=== PATIENT | female | born 1940 | race Asian ===

== ENCOUNTER 2018-01-25 08:36 | Inpatient (IN) | payer OTHER ==
--- NOTE | 2018-01-25 09:26 | PDOC ---
History of Present Illness - General History Source: Patient, Family Exam Limitations: No Limitations - History of Present Illness Initial Comments: 01/25/18 09:57 The patient is a 77 year old female, with a significant past medical history of Anemia, Afib (on eliquis), HTN, Chronic renal insufficiency who presents to the emergency department for worsening renal function. As per daughter, patients creatinine has been gradually increased to 12.3 (last checked 3 weeks ago at office). Patient endorses RLE swelling since changing BP medications. Patient was sent in by nephrology for urgent dialysis. Patient denies any pain or discomfort. Patient denies chest pain, palpitations, diaphoresis, headache or dizziness. Patient denies fever, chills, abdominal pain, nausea, vomit, diarrhea or constipation. Patient denies dysuria, frequency, urgency or hematuria. Patient denies sick contacts or recent travel. Allergies: NKA Past surgical history: LUE fistula Social history: denies etoh, smoking, recreational drug use Nephro: Kimberly Melgoza <Serena Rosas - Last Filed: 01/25/18 11:57> - General History Source: Patient, Family Exam Limitations: No Limitations <Tacho Dallas - Last Filed: 01/25/18 11:59> - General Chief Complaint: Revisit, Lab Variance Stated Complaint: ADMIT/ LAB VARIANCE Time Seen by Provider: 01/25/18 09:12 Past History <Serena Rosas - Last Filed: 01/25/18 11:57> - Past Medical History Anemia: Yes Cardiac Disorders: Yes (A-FIB) COPD: No Dialysis: Yes (JUST PREPARING TO START NOW,LT ARM FISTULA-07/2017) Disorders: Yes (RENAL FAILURE) HTN: Yes - Suicide/Smoking/Psychosocial Hx Smoking History: Never smoked <Tacho Dallas - Last Filed: 01/25/18 11:59> - Past Medical History Allergies/Adverse Reactions: Allergies Allergy/AdvReac Type Severity Reaction Status Date / Time No Known Allergies Allergy Verified 01/25/18 08:55 Home Medications: Ambulatory Orders Apixaban [Eliquis] 2.5 mg PO BID 01/25/18 Atorvastatin Ca [Lipitor] 10 mg PO HS 01/25/18 Calcium Acetate 667 mg PO BID 01/25/18 Calcium Carbonate [Tums] 200 mg PO DAILY 01/25/18 Carvedilol 12.5 mg PO DAILY 01/25/18 Cholecalciferol (Vitamin D3) [Vitamin D3 -] 50,000 unit PO WEEKLY 01/25/18 Epoetin Soy [Procrit] 20,000 unit SQ ASDIR 01/25/18 Ferrous Sulfate 325 mg PO BID 01/25/18 Folic Acid 1 mg PO DAILY 01/25/18 Pantoprazole Sodium [Protonix -] 20 mg PO DAILY 01/25/18 Sevelamer HCl [Renagel] 800 mg PO BID 01/25/18 Sodium Bicarbonate - 650 mg PO DAILY 01/25/18 Torsemide 100 mg PO DAILY 01/25/18 Vit B Comp No.3/Folic/C/Biotin [Kami-Jameel Rx Tablet] 1 each PO DAILY 01/25/18 Review of Systems - Review of Systems Able to Perform ROS?: Yes Comments:: 01/25/18 09:57 . GENERAL/CONSTITUTIONAL: No fever or chills. No weakness. HEAD, EYES, EARS, NOSE AND THROAT: No change in vision. No ear pain or discharge. No sore throat. CARDIOVASCULAR: No chest pain or shortness of breath. RESPIRATORY: No cough, wheezing, or hemoptysis. GASTROINTESTINAL: No nausea, vomiting, diarrhea or constipation. GENITOURINARY: No dysuria, frequency, or change in urination. MUSCULOSKELETAL: No joint or muscle swelling or pain. No neck or back pain. SKIN: No rash NEUROLOGIC: No headache, vertigo, loss of consciousness, or change in strength/ sensation. ENDOCRINE: No increased thirst. No abnormal weight change. HEMATOLOGIC/LYMPHATIC: No anemia, easy bleeding, or history of blood clots. ALLERGIC/IMMUNOLOGIC: No hives or skin allergy. <Serena Rossa - Last Filed: 01/25/18 11:57> *Physical Exam - Vital Signs Last Vital Signs Temp Pulse Resp BP Pulse Ox 97.7 F 63 19 128/72 96 01/25/18 08:56 01/25/18 08:56 01/25/18 08:56 01/25/18 08:56 01/25/18 08:56 - Physical Exam Comments: 01/25/18 09:57 GENERAL: Awake, alert, and fully oriented, in no acute distress HEAD: No signs of trauma EYES: PERRLA, EOMI, sclera anicteric, conjunctiva clear ENT: Auricles normal inspection, hearing grossly normal, nares patent, oropharynx clear without exudates. Moist mucosa NECK: Normal ROM, supple, no lymphadenopathy, JVD, or masses LUNGS: Breath sounds equal, clear to auscultation bilaterally. No wheezes, and no crackles HEART: Regular rate and rhythm, normal S1 and S2, no murmurs, rubs or gallops ABDOMEN: Soft, nontender, normoactive bowel sounds. No guarding, no rebound. No masses EXTREMITIES: Normal range of motion. No clubbing or cyanosis. No cords, erythema , or tenderness. +Trace pedal edema bilaterally. +LUE fistula with palpable thrill. NEUROLOGICAL: Cranial nerves II through XII grossly intact. Normal speech, normal gait SKIN: Warm, Dry, normal turgor, no rashes or lesions noted. <Serena Rosas - Last Filed: 01/25/18 11:57> - Vital Signs Last Vital Signs Temp Pulse Resp BP Pulse Ox 97.7 F 63 19 128/72 96 01/25/18 08:56 01/25/18 08:56 01/25/18 08:56 01/25/18 08:56 01/25/18 08:56 <Tacho Dallas - Last Filed: 01/25/18 11:59> Moderate Sedation - Procedure Monitoring Vital Signs: Vital Signs Temp Pulse Resp BP Pulse Ox 97.7 F 63 19 128/72 96 01/25/18 08:56 01/25/18 08:56 01/25/18 08:56 01/25/18 08:56 01/25/18 08:56 <Serena Rosas - Last Filed: 01/25/18 11:57> - Procedure Monitoring Vital Signs: Vital Signs Temp Pulse Resp BP Pulse Ox 97.7 F 63 19 128/72 96 01/25/18 08:56 01/25/18 08:56 01/25/18 08:56 01/25/18 08:56 01/25/18 08:56 <Tacho Dallas - Last Filed: 01/25/18 11:59> Heart Score/ECG Review #1 ECG reviewed & interpreted by me at: 10:15 01/25/18 10:25 NSR 60. QTC 482 msec, no std/samia, normal axis, TWI I, avL <Tacho Dallas - Last Filed: 01/25/18 11:59> ED Treatment Course - LABORATORY CBC & Chemistry Diagram: 01/25/18 11:10 01/25/18 11:10 <Serena Rosas - Last Filed: 01/25/18 11:57> - LABORATORY CBC & Chemistry Diagram: 01/25/18 11:10 01/25/18 11:10 - RADIOLOGY Radiology Studies Ordered: Category Date Time Status CHEST X-RAY PORTABLE* [RAD] Stat Radiology 01/25/18 09:14 Ordered <Tacho Dallas - Last Filed: 01/25/18 11:59> Medical Decision Making - Medical Decision Making 01/25/18 10:50 Dr. Fontanez paged overhead x2 01/25/18 11:25 Dr. Fontanez in ED, patient's case discussed. 01/25/18 11:[address] Rutherford for admission. Discussed patient's case. <Serena Rosas - Last Filed: 01/25/18 11:57> - Medical Decision Making 01/25/18 09:23 A portion of this note was documented by scribe services under my direction. I have reviewed the details of the note, within reason, and agree with the documentation with the following case summary and management plan written by me. Patient treated in the ED. Nursing notes are reviewed and incorporated into the medical decision-making. Vital signs reviewed. Peripheral IV access obtained by the nurse, laboratory studies are drawn and sent, reviewed and interpreted by myself. Vital Signs Temp Pulse Resp BP Pulse Ox 97.7 F 63 19 128/72 96 01/25/18 08:56 01/25/18 08:56 01/25/18 08:56 01/25/18 08:56 01/25/18 08:56 77-year-old female with history of atrial fibrillation on eliquis, hypertension , chronic renal insufficiency presents with admission to the hospital for renal failure. The patient has been having progressively worsening renal insufficiency with creatinine greater than 10. Patient denies any symptoms at the moment. Was sent in for dialysis. Patient does have a left upper extremity fistula. Patient's machine setter supervisor is Dr. Lynne Melgoza. We'll admit the patient to the hospital and contact patient's machine setter supervisor for renal failure. 01/25/18 11:59 CBC, BMP 01/25/18 11:10 01/25/18 11:10 CMP Sodium 135 mmol/L (136-145) L 01/25/18 11:10 Potassium 4.9 mmol/L (3.5-5.1) 01/25/18 11:10 Chloride 98 mmol/L (98-107) 01/25/18 11:10 Carbon Dioxide 25 mmol/L (21-32) 01/25/18 11:10 Anion Gap 12 (8-16) 01/25/18 11:10 BUN 96 mg/dL (7-18) H 01/25/18 11:10 Creatinine 13.7 mg/dL (0.55-1.02) H* 01/25/18 11:10 Creat Clearance w eGFR 2.62 (>60) 01/25/18 11:10 Random Glucose 83 mg/dL (74-106) 01/25/18 11:10 Calcium 7.8 mg/dL (8.5-10.1) L 01/25/18 11:10 Phosphorus 7.9 mg/dL (2.5-4.9) H 01/25/18 11:10 Magnesium 3.3 mg/dL (1.8-2.4) H 01/25/18 11:10 Total Bilirubin 0.3 mg/dL (0.2-1.0) 01/25/18 11:10 AST 13 U/L (15-37) L 01/25/18 11:10 ALT 11 U/L (12-78) L 01/25/18 11:10 Alkaline Phosphatase 69 U/L (45-117) 01/25/18 11:10 Total Protein 6.8 g/dl (6.4-8.2) 01/25/18 11:10 Albumin 3.1 g/dl (3.4-5.0) L 01/25/18 11:[address] Fabian Fontanez. Will likely set up dialysis today. Case discussed with DR. Rutherford who accepts patient to her service. Case discussed in detail with admitting physician including history, physical exam and ancillary studies. Admitting physician has assumed care for the patient, will follow all pending diagnostics and will complete the evaluation and treatment. <Tacho Dallas - Last Filed: 01/25/18 11:59> *DC/Admit/Observation/Transfer - Attestations Scribe Attestion: 01/25/18 09:57 Documentation prepared by Serena Rosas, acting as medical lab technician for Tacho Dallas MD <Serena Rosas - Last Filed: 01/25/18 11:57> - Discharge Dispostion Decision to Admit order: Yes <Tacho Dallas - Last Filed: 01/25/18 11:59> Diagnosis at time of Disposition: Renal failure Qualifiers: Renal failure chronicity: unspecified chronicity Qualified Code(s): N19 - Unspecified kidney failure - Discharge Dispostion Condition at time of disposition: Stable
[2018-01-25 11:27] LABS: BASO % 1.1 % (0-2.0); EOS % 6.7 % (0-4.5); HEMATOCRIT 28.1 % (32.4-45.2); HEMOGLOBIN 9.1 GM/dL (10.7-15.3); LYMPH % 23.7 % (8-40); MCH 28.6 pg (25.7-33.7); MCHC 32.4 g/dl (32.0-36.0); MEAN CELL VOLUME 88.2 fl (80-96); MEAN PLT VOLUME 7.4 fl (7.5-11.1); MONO % 7.4 % (3.8-10.2); NEUT % 61.1 % (42.8-82.8); PLATELET COUNT 218 K/MM3 (134-434); RBC 3.18 M/mm3 (3.60-5.2); RDW 15.3 % (11.6-15.6); WHITE BLOOD COUNT 6.3 K/mm3 (4.0-10.0)
[2018-01-25 11:52] LABS: ALBUMIN 3.1 g/dl (3.4-5.0); ANION GAP 12 (8-16); BILIRUBIN,TOTAL 0.3 mg/dL (0.2-1.0); BLOOD UREA NITROGEN 96 mg/dL (7-18); CALCIUM 7.8 mg/dL (8.5-10.1); CHLORIDE 98 mmol/L (98-107); CO2 25 mmol/L (21-32); GLUCOSE,RANDOM 83 mg/dL (74-106); PHOSPHOROUS 7.9 mg/dL (2.5-4.9); SGPT/ALT 11 U/L (12-78); SODIUM 135 mmol/L (136-145); TOT PROT 6.8 g/dl (6.4-8.2)
[2018-01-25 11:55] LABS: ALK PHOS 69 U/L (45-117); MAGNESIUM 3.3 mg/dL (1.8-2.4); POTASSIUM 4.9 mmol/L (3.5-5.1); SGOT/AST 13 U/L (15-37)
[2018-01-25 11:57] LABS: CREATININE 13.7 mg/dL (0.55-1.02)
[2018-01-25 11:59] LABS: URINE APPEARANCE CLEAR; URINE BILIRUBIN NEGATIVE (<2.0 mg/dL); URINE BLOOD NEGATIVE (NEGATIVE); URINE COLOR STRAW; URINE GLUCOSE (UA) 1+ (NEGATIVE); URINE KETONE NEGATIVE (NEGATIVE); URINE LEUK ESTERASE NEGATIVE (NEGATIVE); URINE NITRITE NEGATIVE (NEGATIVE); URINE UROBILINOGEN NEGATIVE mg/dL (0.2-1.0)
[2018-01-25 12:06] LABS: URINE PROTEIN 2+ (NEGATIVE)
[2018-01-25 12:08] LABS: INR 1.28 (0.82-1.09); PROTHROMBIN TIME (PATIENT) 14.5 SEC (9.7-13.0)
[2018-01-25 12:08] LABS: EPI CELLS RARE /HPF (FEW); URINE MUCUS RARE
[2018-01-25 12:11] LABS: ACTIVATED PTT 36.4 SECONDS (26.9-34.4)
--- NOTE | 2018-01-25 12:40 | CONSULT ---
Consult Consult Specialty:: Nephrology ( Alexis/ Huseyin) Reason for Consultation:: Advanced Chronic Kideny failure with symptoms of uremia - History of Present Illness Chief Complaint: Weakness, lethargy History of Present Illness: The patient is a 77 year old [place] female, with a significant past medical history of Anemia, Afib (on Eliquis), HTN, Chronic kidney failure who presented to the emergency department for worsening renal function and weakness. The patient's Serum Creatinine has been gradually increasing over a period, but the patient and family wanted to put off dialysis until the very last possible day. Patient gets LE swelling since changing BP medications. She was being followed up by me very closely in the office. A left arm AVF done in [facility] in 2016 was revised in [facility] a few months ago by Dr. Angel. Patient denies chest pain, palpitations, diaphoresis, headache or dizziness. Patient denies fever, chills, abdominal pain, nausea, vomit, diarrhea or constipation. Patient denies dysuria, frequency, urgency or hematuria. Patient denies sick contacts or recent travel. 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 No: Bleeding Disorder, Cancer Musculoskeletal: Yes: Osteoarthritis - Past Surgical History Past Surgical History: Yes: AV Fistula/Graft (Left arm AVF) - Alcohol/Substance Use Hx Alcohol Use: No History of Substance Use: reports: None - Smoking History Smoking history: Never smoked - Social History ADL: Family Assistance Place of : Other Home Medications - Allergies Allergies/Adverse Reactions: Allergies Allergy/AdvReac Type Severity Reaction Status Date / Time No Known Allergies Allergy Verified 01/25/18 08:55 - Home Medications Home Medications: Ambulatory Orders Apixaban [Eliquis] 2.5 mg PO BID 01/25/18 Atorvastatin Ca [Lipitor] 10 mg PO HS 01/25/18 Calcium Acetate 667 mg PO BID 01/25/18 Calcium Carbonate [Tums] 200 mg PO DAILY 01/25/18 Carvedilol 12.5 mg PO DAILY 01/25/18 Cholecalciferol (Vitamin D3) [Vitamin D3 -] 50,000 unit PO WEEKLY 01/25/18 Epoetin Soy [Procrit] 20,000 unit SQ ASDIR 01/25/18 Ferrous Sulfate 325 mg PO BID 01/25/18 Folic Acid 1 mg PO DAILY 01/25/18 Pantoprazole Sodium [Protonix -] 20 mg PO DAILY 01/25/18 Sevelamer HCl [Renagel] 800 mg PO BID 01/25/18 Sodium Bicarbonate - 650 mg PO DAILY 01/25/18 Torsemide 100 mg PO DAILY 01/25/18 Vit B Comp No.3/Folic/C/Biotin [Kami-Jameel Rx Tablet] 1 each PO DAILY 01/25/18 Review of Systems - Review of Systems Constitutional: reports: Lethargy, Weakness Cardiovascular: reports: Edema (mostly on Amlodipine). denies: Chest Pain, Shortness of Breath Respiratory: denies: Orthopnea, SOB Gastrointestinal: denies: Abdominal Pain, Constipation, Diarrhea Musculoskeletal: reports: Muscle Weakness Neurological: reports: Weakness Psychiatric: reports: Altered Sleep Pattern Physical Exam Vital Signs: Vital Signs Temperature 97.7 F 01/25/18 08:56 Pulse Rate 63 01/25/18 08:56 Respiratory Rate 19 01/25/18 08:56 Blood Pressure 128/72 01/25/18 08:56 O2 Sat by Pulse Oximetry (%) 96 01/25/18 08:56 Constitutional: Yes: Anxious, Thin HENT: Yes: Atraumatic Neck: Yes: Trachea Midline Cardiovascular: Yes: Pulse Irregular, S1, S2 Respiratory: Yes: CTA Bilaterally Gastrointestinal: Yes: Normal Bowel Sounds, Soft Renal/: No: CVA Tenderness - Left, CVA Tenderness - Right Musculoskeletal: Yes: Muscle Weakness Edema: Yes Edema: LLE: Trace, RLE: Trace Integumentary: No: Jaundice, Rash Neurological: Yes: Alert, Oriented, Weakness Psychiatric: Yes: Alert, Oriented Labs: CBC, BMP 01/25/18 11:10 01/25/18 11:10 Problem List - Problems (1) End-stage kidney disease Code(s): N18.6 - END STAGE RENAL DISEASE (2) Anemia in chronic kidney disease (CKD) Code(s): N18.9 - CHRONIC KIDNEY DISEASE, UNSPECIFIED; D63.1 - ANEMIA IN CHRONIC KIDNEY DISEASE (3) Hypertension Code(s): I10 - ESSENTIAL (PRIMARY) HYPERTENSION (4) Chronic atrial fibrillation Code(s): I48.2 - CHRONIC ATRIAL FIBRILLATION Assessment/Plan The patient is a 77 year old [place] female, with a significant past medical history of Anemia, Afib (on Eliquis), HTN, Chronic kidney failure who presented to the emergency department for worsening renal function and weakness. Advanced Chronic kidney Disease, ESRD, with symptoms of Uremia. Will initiate dialysis today. the first dialysis will be for 2 hours, 16 G needle and with ABF of 200 ml/min. Anemia, of Chronic Renal disease. Will give Epogen. Hypertension...well controlled AVF left arm with good bruit. No BP/ IV on the left arm. Atrial fibrillation. Moderate Ventricular response. Orders for Hemodialysis written and reviewed with the RN. Thank you. Will follow with you. Kimberly Espinoza MD
--- NOTE | 2018-01-25 18:06 | EKG ---
Test Reason : Blood Pressure : / mmHG Vent. Rate : 060 BPM Atrial Rate : 060 BPM P-R Int : 178 ms QRS Dur : 106 ms QT Int : 482 ms P-R-T Axes : 060 -09 089 degrees QTc Int : 482 ms NORMAL SINUS RHYTHM NONSPECIFIC T WAVE ABNORMALITY PROLONGED QT ABNORMAL ECG NO PREVIOUS ECGS AVAILABLE Confirmed by AROLDO QUINN MD ([id number]) on 01/25/2018 6:05:38 PM Referred By: Confirmed By:AROLDO QUINN MD
[2018-01-25] MEDS ORDERED: ZOLPIDEM TARTRATE 5 MG TABLET PO PRN (19:00)
[2018-01-25] MEDS ORDERED: EPOETIN ALFA 10,000 UNIT/1 ML VIAL IVPUSH ONE (19:30)
--- NOTE | 2018-01-25 19:53 | HP ---
Admitting History and Physical - Primary Care Physician PCP: Rizwana Rutherford - Admission History of Present Illness: 77 year old female, with a significant past medical history of Anemia, Afib (on eliquis), HTN, Chronic renal insufficiency who presents to the emergency department for worsening renal function. As per daughter, patients creatinine has been gradually increased to 12.3 (last checked 3 weeks ago at office). Patient endorses RLE swelling since changing BP medications. Patient was sent in by nephrology for urgent dialysis. Patient denies any pain or discomfort. 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 No: Bleeding Disorder, Cancer Musculoskeletal: Yes: Osteoarthritis - Past Surgical History Past Surgical History: Yes: AV Fistula/Graft (Left arm AVF) - Smoking History Smoking history: Never smoked - Alcohol/Substance Use Hx Alcohol Use: No History of Substance Use: reports: None - Social History ADL: Family Assistance Home Medications - Allergies Allergies/Adverse Reactions: Allergies Allergy/AdvReac Type Severity Reaction Status Date / Time No Known Allergies Allergy Verified 01/25/18 08:55 - Home Medications Home Medications: Ambulatory Orders Amlodipine Besylate 5 mg PO DAILY 01/25/18 Apixaban [Eliquis] 2.5 mg PO BID 01/25/18 Atorvastatin Ca [Lipitor] 10 mg PO HS 01/25/18 Calcium Acetate 667 mg PO TID 01/25/18 Calcium Carbonate [Tums] 200 mg PO DAILY 01/25/18 Carvedilol 12.5 mg PO BID 01/25/18 Carvedilol [Coreg] 6.25 mg PO BID 01/25/18 Cholecalciferol (Vitamin D3) [Vitamin D3 -] 50,000 unit PO WEEKLY 01/25/18 Epoetin Soy [Procrit] 20,000 unit SQ ASDIR 01/25/18 Ferrous Sulfate 325 mg PO BID 01/25/18 Folic Acid 1 mg PO DAILY 01/25/18 Pantoprazole Sodium [Protonix -] 20 mg PO DAILY 01/25/18 Sevelamer HCl [Renagel] 800 mg PO BID 01/25/18 Sodium Bicarbonate - 650 mg PO TID 01/25/18 Torsemide 100 mg PO DAILY 01/25/18 Vit B Comp No.3/Folic/C/Biotin [Kami-Jameel Rx Tablet] 1 each PO DAILY 01/25/18 Physical Examination Vital Signs: Vital Signs Temperature 97.6 F 01/25/18 18:35 Pulse Rate 60 01/25/18 19:10 Respiratory Rate 18 01/25/18 19:10 Blood Pressure 151/88 01/25/18 19:10 O2 Sat by Pulse Oximetry (%) 97 01/25/18 14:18 Constitutional: Yes: No Distress HENT: Yes: Atraumatic Neck: Yes: Supple Cardiovascular: Yes: Regular Rate and Rhythm Respiratory: Yes: CTA Bilaterally Gastrointestinal: Yes: Normal Bowel Sounds Extremities: Yes: WNL Labs: CBC, BMP 01/25/18 11:10 01/25/18 11:10 Problem List - Problems (1) Anemia in chronic kidney disease (CKD) Assessment/Plan: fu labs on procrit and fe Code(s): N18.9 - CHRONIC KIDNEY DISEASE, UNSPECIFIED; D63.1 - ANEMIA IN CHRONIC KIDNEY DISEASE (2) Chronic atrial fibrillation Assessment/Plan: on blood thinner and other meds Code(s): I48.2 - CHRONIC ATRIAL FIBRILLATION (3) End-stage kidney disease Assessment/Plan: on HD now..first time Code(s): N18.6 - END STAGE RENAL DISEASE (4) Hypertension Assessment/Plan: on meds stable Code(s): I10 - ESSENTIAL (PRIMARY) HYPERTENSION Assessment/Plan Laboratory Results - last 24 hr 01/25/18 01/25/18 01/25/18 11:10 11:10 11:10 WBC 6.3 RBC 3.18 L Hgb 9.1 L Hct 28.1 L MCV 88.2 MCH 28.6 MCHC 32.4 RDW 15.3 Plt Count 218 MPV 7.4 L Neutrophils % 61.1 Lymphocytes % 23.7 Monocytes % 7.4 Eosinophils % 6.7 H Basophils % 1.1 PT with INR 14.50 H INR 1.28 H PTT (Actin FS) 36.4 H Sodium 135 L Potassium 4.9 Chloride 98 Carbon Dioxide 25 Anion Gap 12 BUN 96 H Creatinine 13.7 H* Creat Clearance w eGFR 2.62 Random Glucose 83 Calcium 7.8 L Phosphorus 7.9 H Magnesium 3.3 H Total Bilirubin 0.3 AST 13 L ALT 11 L Alkaline Phosphatase 69 Total Protein 6.8 Albumin 3.1 L Urine Color Urine Appearance Urine pH Ur Specific [place] Urine Protein Urine Glucose (UA) Urine Ketones Urine Blood Urine Nitrite Urine Bilirubin Urine Urobilinogen Ur Leukocyte Esterase Urine WBC (Auto) Urine RBC (Auto) Ur Epithelial Cells Urine Mucus 01/25/18 11:45 WBC RBC Hgb Hct MCV MCH MCHC RDW Plt Count MPV Neutrophils % Lymphocytes % Monocytes % Eosinophils % Basophils % PT with INR INR PTT (Actin FS) Sodium Potassium Chloride Carbon Dioxide Anion Gap BUN Creatinine Creat Clearance w eGFR Random Glucose Calcium Phosphorus Magnesium Total Bilirubin AST ALT Alkaline Phosphatase Total Protein Albumin Urine Color Straw Urine Appearance Clear Urine pH 8.0 Ur Specific [place] 1.009 Urine Protein 2+ H Urine Glucose (UA) 1+ H Urine Ketones Negative Urine Blood Negative Urine Nitrite Negative Urine Bilirubin Negative Urine Urobilinogen Negative Ur Leukocyte Esterase Negative Urine WBC (Auto) 6 Urine RBC (Auto) 1 Ur Epithelial Cells Rare Urine Mucus Rare Active Medications Generic Name Dose Route Start Last Admin Trade Name Freq PRN Reason Stop Dose Admin Zolpidem Tartrate 5 mg 01/25/18 19:00 Ambien - PO DAILY@1900 PRN INSOMNIA for dialysis Active Medications Generic Name Dose Route Start Last Admin Trade Name Freq PRN Reason Stop Dose Admin Amlodipine Besylate 5 mg 01/26/18 10:00 01/26/18 09:03 Norvasc - PO 5 mg DAILY ROLANDO Administration Apixaban 2.5 mg 01/25/18 22:00 01/26/18 09:03 Eliquis - PO 2.5 mg BID ROLANDO Administration Atorvastatin Calcium 10 mg 01/25/18 22:00 01/25/18 22:52 Lipitor - PO 10 mg HS ROLANDO Administration Calcium Acetate 667 mg 01/26/18 08:00 01/26/18 08:37 Phoslo - PO 667 mg BIDWM ROLANDO Administration Carvedilol 12.5 mg/ Carvedilol 18.75 mg 01/25/18 23:45 01/26/18 09:02 6.25 mg PO 18.75 mg BID ROLANDO Administration Folic Acid 1 mg 01/26/18 10:00 01/26/18 09:03 Folic Acid - PO 1 mg DAILY ROLANDO Administration Sodium Chloride 250 mls @ 3,000 mls/hr 01/26/18 15:49 Normal Saline - IV 01/27/18 15:48 PRN PRN Hypotension during Dialysis Pantoprazole Sodium 20 mg 01/26/18 10:00 01/26/18 09:02 Protonix - PO 20 mg DAILY ROLANDO Administration Sevelamer Carbonate 800 mg 01/26/18 08:00 01/26/18 08:37 Renvela - PO 800 mg BIDWM ROLANDO Administration Sodium Bicarbonate 650 mg 01/26/18 10:00 01/26/18 09:02 Sodium Bicarbonate - PO 650 mg DAILY ROLANDO Administration Torsemide 100 mg 01/26/18 10:00 01/26/18 11:22 Demadex - PO 100 mg DAILY ROLANDO Administration Zolpidem Tartrate 5 mg 01/25/18 19:00 Ambien - PO DAILY@1900 PRN INSOMNIA
[2018-01-25] MEDS ORDERED: EPOETIN ALFA 20,000 UNIT/1 ML VIAL SQ SCH (20:00)
[2018-01-25] MEDS: ATORVASTATIN CA 10 MG TABLET (FP) PO SCH (22:52)
[2018-01-25] MEDS: APIXABAN 2.5 MG TABLET PO SCH (22:52)
[2018-01-25] MEDS ORDERED: CARVEDILOL 12.5 MG TABLET (FP) ONE (23:42)
[2018-01-25] MEDS ORDERED: CARVEDILOL 6.25 MG TABLET (FP) ONE (23:42)
[2018-01-25] MEDS: CARVEDILOL 12.5 MG, CARVEDILOL 6.25 MG PO SCH (23:44)
[2018-01-26 01:50] VITALS: BMI 21.4
[2018-01-26] MEDS ORDERED: CARVEDILOL 6.25 MG TABLET (FP) ONE (08:29)
[2018-01-26] MEDS ORDERED: CARVEDILOL 12.5 MG TABLET (FP) ONE ×2 (08:29→21:14)
[2018-01-26] MEDS ORDERED: PT OWN MED DRAWER 7, Y5N ONE ×3 (08:29→21:15)
[2018-01-26] MEDS: CALCIUM ACETATE 667 MG CAPSULE (FP) PO SCH ×2 (08:37→17:30)
[2018-01-26] MEDS: SEVELAMER CARBONATE 800 MG TAB (FP) PO SCH ×2 (08:37→17:30)
[2018-01-26] MEDS: PANTOPRAZOLE 20 MG TABLET (FP) PO SCH (09:02)
[2018-01-26] MEDS: CARVEDILOL 12.5 MG, CARVEDILOL 6.25 MG PO SCH ×2 (09:02→22:12)
[2018-01-26] MEDS: SODIUM BICARBONATE 650 MG TABLET PO SCH (09:02)
[2018-01-26] MEDS: amLODIPine BESYLATE 5 MG TABLET (FP) PO SCH (09:03)
[2018-01-26] MEDS: APIXABAN 2.5 MG TABLET PO SCH ×2 (09:03→22:12)
[2018-01-26] MEDS: FOLIC ACID 1 MG TABLET (FP) PO SCH (09:03)
[2018-01-26] MEDS ORDERED: SODIUM CHLORIDE 250 ML IV PRN ×2 (09:35→15:49)
[2018-01-26] MEDS ORDERED: CARVEDILOL 6.25 MG TABLET (FP) PO SCH (10:00)
[2018-01-26] MEDS ORDERED: CARVEDILOL 12.5 MG TABLET (FP) PO SCH (10:00)
[2018-01-26] MEDS: TORSEMIDE 100 MG TABLET PO SCH (11:22)
[2018-01-26 11:24] LABS: HEMATOCRIT 29.5 % (32.4-45.2); HEMOGLOBIN 9.6 GM/dL (10.7-15.3); MCH 28.9 pg (25.7-33.7); MCHC 32.6 g/dl (32.0-36.0); MEAN CELL VOLUME 88.8 fl (80-96); MEAN PLT VOLUME 7.5 fl (7.5-11.1); PLATELET COUNT 223 K/MM3 (134-434); RBC 3.32 M/mm3 (3.60-5.2); RDW 15.5 % (11.6-15.6); WHITE BLOOD COUNT 5.6 K/mm3 (4.0-10.0)
[2018-01-26 11:39] LABS: ANION GAP 13 (8-16); BLOOD UREA NITROGEN 91 mg/dL (7-18); CALCIUM 7.8 mg/dL (8.5-10.1); CHLORIDE 100 mmol/L (98-107); CO2 26 mmol/L (21-32); POTASSIUM 4.6 mmol/L (3.5-5.1); SODIUM 139 mmol/L (136-145)
[2018-01-26 11:53] LABS: GLUCOSE,RANDOM 105 mg/dL (74-106); PHOSPHOROUS 7.2 mg/dL (2.5-4.9)
[2018-01-26 11:59] LABS: CREATININE 12.5 mg/dL (0.55-1.02)
--- NOTE | 2018-01-26 15:59 | PN ---
Progress Note, Physician History of Present Illness: doing well - Current Medication List Current Medications: Active Medications Amlodipine Besylate (Norvasc -) 5 mg PO DAILY [facility] Last Admin: 01/26/18 09:03 Dose: 5 mg Apixaban (Eliquis -) 2.5 mg PO BID [facility] Last Admin: 01/26/18 09:03 Dose: 2.5 mg Atorvastatin Calcium (Lipitor -) 10 mg PO HS [facility] Last Admin: 01/25/18 22:52 Dose: 10 mg Calcium Acetate (Phoslo -) 667 mg PO BIDWM [facility] Last Admin: 01/26/18 08:37 Dose: 667 mg Carvedilol 12.5 mg/ Carvedilol (6.25 mg) 18.75 mg PO BID [facility] Last Admin: 01/26/18 09:02 Dose: 18.75 mg Folic Acid (Folic Acid -) 1 mg PO DAILY [facility] Last Admin: 01/26/18 09:03 Dose: 1 mg Sodium Chloride (Normal Saline -) 250 mls @ 3,000 mls/hr IV PRN PRN PRN Reason: Hypotension during Dialysis Stop: 01/27/18 15:48 Pantoprazole Sodium (Protonix -) 20 mg PO DAILY [facility] Last Admin: 01/26/18 09:02 Dose: 20 mg Sevelamer Carbonate (Renvela -) 800 mg PO BIDWM [facility] Last Admin: 01/26/18 08:37 Dose: 800 mg Sodium Bicarbonate (Sodium Bicarbonate -) 650 mg PO DAILY [facility] Last Admin: 01/26/18 09:02 Dose: 650 mg Torsemide (Demadex -) 100 mg PO DAILY [facility] Last Admin: 01/26/18 11:22 Dose: 100 mg Zolpidem Tartrate (Ambien -) 5 mg PO DAILY@1900 PRN PRN Reason: INSOMNIA - Objective Vital Signs: Vital Signs Temperature 98.2 F 01/26/18 14:21 Pulse Rate 70 01/26/18 14:21 Respiratory Rate 18 01/26/18 14:21 Blood Pressure 137/83 01/26/18 14:21 O2 Sat by Pulse Oximetry (%) 97 01/26/18 11:00 Constitutional: Yes: No Distress HENT: Yes: Atraumatic Neck: Yes: Supple Cardiovascular: Yes: Regular Rate and Rhythm Respiratory: Yes: CTA Bilaterally Gastrointestinal: Yes: Normal Bowel Sounds Extremities: Yes: WNL Neurological: Yes: Alert, Oriented Labs: CBC, BMP 01/26/18 10:50 01/26/18 10:50 INR, PTT INR 1.28 (0.82-1.09) H 01/25/18 11:10 Problem List - Problems (1) Anemia in chronic kidney disease (CKD) Assessment/Plan: fu labs on procrit and fe Code(s): N18.9 - CHRONIC KIDNEY DISEASE, UNSPECIFIED; D63.1 - ANEMIA IN CHRONIC KIDNEY DISEASE (2) Chronic atrial fibrillation Assessment/Plan: on blood thinner and other meds Code(s): I48.2 - CHRONIC ATRIAL FIBRILLATION (3) End-stage kidney disease Assessment/Plan: on HD now..first time for recanalization of fistula...on Code(s): N18.6 - END STAGE RENAL DISEASE (4) Hypertension Assessment/Plan: on meds stable Code(s): I10 - ESSENTIAL (PRIMARY) HYPERTENSION
--- NOTE | 2018-01-26 17:50 | PN ---
Progress Note (short form) - Note Progress Note: Renal follow up for ESRD on HD Pt seen and examined in the HD unit currently getting dialysis Dameron pressure very elevated and signs of recirculation no sob, chest pain Vital Signs Temperature 98.2 F 01/26/18 14:21 Pulse Rate 70 01/26/18 14:21 Respiratory Rate 18 01/26/18 14:21 Blood Pressure 137/83 01/26/18 14:21 O2 Sat by Pulse Oximetry (%) 97 01/26/18 11:00 Intake & Output 01/23/18 01/24/18 01/25/18 01/26/18 23:59 23:59 23:59 23:59 Intake Total 100 Balance 100 Weight 51.528 kg 51.528 kg NAD awake and alert RRR no M/R CTA soft NT/ND no LE edema CBC, BMP 01/26/18 10:50 01/26/18 10:50 Current Medications Amlodipine Besylate (Norvasc -) 5 mg PO DAILY [facility] Last Admin: 01/26/18 09:03 Dose: 5 mg Apixaban (Eliquis -) 2.5 mg PO BID [facility] Last Admin: 01/26/18 09:03 Dose: 2.5 mg Atorvastatin Calcium (Lipitor -) 10 mg PO HS [facility] Last Admin: 01/25/18 22:52 Dose: 10 mg Calcium Acetate (Phoslo -) 667 mg PO BIDWM [facility] Last Admin: 01/26/18 17:30 Dose: Not Given Carvedilol 12.5 mg/ Carvedilol (6.25 mg) 18.75 mg PO BID [facility] Last Admin: 01/26/18 09:02 Dose: 18.75 mg Folic Acid (Folic Acid -) 1 mg PO DAILY [facility] Last Admin: 01/26/18 09:03 Dose: 1 mg Sodium Chloride (Normal Saline -) 250 mls @ 3,000 mls/hr IV PRN PRN PRN Reason: Hypotension during Dialysis Stop: 01/27/18 15:48 Pantoprazole Sodium (Protonix -) 20 mg PO DAILY [facility] Last Admin: 01/26/18 09:02 Dose: 20 mg Sevelamer Carbonate (Renvela -) 800 mg PO BIDWM [facility] Last Admin: 01/26/18 17:30 Dose: Not Given Sodium Bicarbonate (Sodium Bicarbonate -) 650 mg PO DAILY [facility] Last Admin: 01/26/18 09:02 Dose: 650 mg Torsemide (Demadex -) 100 mg PO DAILY [facility] Last Admin: 01/26/18 11:22 Dose: 100 mg Zolpidem Tartrate (Ambien -) 5 mg PO DAILY@1900 PRN PRN Reason: INSOMNIA 77 year old woman with CKD stage 5, Hypertension, Anemia persented with fatigue and uremic symptoms and started on HD #ESRD on HD #Hypertension #Recirculation #Anemia in CKD #Renal Osteodystrophy Pt with signs of recirculation on HD will need vascular evalulation of her AVF s/p Epogen with HD yesterday continue Phos binder TID with meals Consulted Dr. evans outpatient HD unit placement at [facility] Fabian Fontanez DO
--- NOTE | 2018-01-26 17:58 | PN ---
Progress Note (short form) - Note Progress Note: Vascular Surgery Pt seen and examined in HD Pt on dialysis with volume flow of 240. There is a issue of re-circulation. Will order US to look at aVf. Will probably need venogram on morning to make sure avf is patent with no stenosis. Alfred evans DO
[2018-01-26] MEDS: ATORVASTATIN CA 10 MG TABLET (FP) PO SCH (22:12)
[2018-01-27 08:46] LABS: ANION GAP 12 (8-16); BLOOD UREA NITROGEN 78 mg/dL (7-18); CALCIUM 7.5 mg/dL (8.5-10.1); CHLORIDE 102 mmol/L (98-107); CO2 25 mmol/L (21-32); GLUCOSE,RANDOM 73 mg/dL (74-106); PHOSPHOROUS 6.6 mg/dL (2.5-4.9); POTASSIUM 4.2 mmol/L (3.5-5.1); SODIUM 139 mmol/L (136-145)
[2018-01-27] MEDS ORDERED: CARVEDILOL 12.5 MG TABLET (FP) ONE ×3 (08:52→20:58)
[2018-01-27 08:58] LABS: CREATININE 11.5 mg/dL (0.55-1.02)
[2018-01-27] MEDS: SODIUM BICARBONATE 650 MG TABLET PO SCH (09:01)
[2018-01-27] MEDS: PANTOPRAZOLE 20 MG TABLET (FP) PO SCH (09:01)
[2018-01-27] MEDS: amLODIPine BESYLATE 5 MG TABLET (FP) PO SCH (09:02)
[2018-01-27] MEDS: CARVEDILOL 12.5 MG, CARVEDILOL 6.25 MG PO SCH ×2 (09:04→21:32)
[2018-01-27] MEDS: CALCIUM ACETATE 667 MG CAPSULE (FP) PO SCH ×2 (09:04→18:08)
[2018-01-27] MEDS: FOLIC ACID 1 MG TABLET (FP) PO SCH (09:05)
[2018-01-27] MEDS ORDERED: PT OWN MED DRAWER 7, Y5N ONE (09:06)
[2018-01-27] MEDS: SEVELAMER CARBONATE 800 MG TAB (FP) PO SCH ×2 (09:08→18:08)
[2018-01-27] MEDS: TORSEMIDE 100 MG TABLET PO SCH (09:09)
[2018-01-27] MEDS: APIXABAN 2.5 MG TABLET PO SCH (10:18)
--- NOTE | 2018-01-27 10:21 | PN ---
Progress Note (short form) - Note Progress Note: Vascular Surgery For left avf venogram, venoplasty tom. Grey on hold. NPO past midnight. Alfred evans DO
--- NOTE | 2018-01-27 10:30 | PN ---
Progress Note, Physician History of Present Illness: stable - Current Medication List Current Medications: Active Medications Amlodipine Besylate (Norvasc -) 5 mg PO DAILY [facility] Last Admin: 01/27/18 09:02 Dose: 5 mg Atorvastatin Calcium (Lipitor -) 10 mg PO HS [facility] Last Admin: 01/26/18 22:12 Dose: 10 mg Calcium Acetate (Phoslo -) 667 mg PO BIDWM [facility] Last Admin: 01/27/18 09:04 Dose: 667 mg Carvedilol 12.5 mg/ Carvedilol (6.25 mg) 18.75 mg PO BID [facility] Last Admin: 01/27/18 09:04 Dose: 18.75 mg Folic Acid (Folic Acid -) 1 mg PO DAILY [facility] Last Admin: 01/27/18 09:05 Dose: 1 mg Sodium Chloride (Normal Saline -) 250 mls @ 3,000 mls/hr IV PRN PRN PRN Reason: Hypotension during Dialysis Stop: 01/27/18 15:48 Pantoprazole Sodium (Protonix -) 20 mg PO DAILY [facility] Last Admin: 01/27/18 09:01 Dose: 20 mg Sevelamer Carbonate (Renvela -) 800 mg PO BIDWM [facility] Last Admin: 01/27/18 09:08 Dose: 800 mg Sodium Bicarbonate (Sodium Bicarbonate -) 650 mg PO DAILY [facility] Last Admin: 01/27/18 09:01 Dose: 650 mg Torsemide (Demadex -) 100 mg PO DAILY [facility] Last Admin: 01/27/18 09:09 Dose: 100 mg Zolpidem Tartrate (Ambien -) 5 mg PO DAILY@1900 PRN PRN Reason: INSOMNIA - Objective Vital Signs: Vital Signs Temperature 97.7 F 01/27/18 09:22 Pulse Rate 73 01/27/18 09:22 Respiratory Rate 18 01/27/18 09:22 Blood Pressure 128/74 01/27/18 09:22 O2 Sat by Pulse Oximetry (%) 98 01/26/18 22:36 Constitutional: Yes: No Distress HENT: Yes: Atraumatic Neck: Yes: Supple Cardiovascular: Yes: Regular Rate and Rhythm Respiratory: Yes: CTA Bilaterally Gastrointestinal: Yes: Normal Bowel Sounds Edema: No Peripheral Pulses WNL: Yes Neurological: Yes: Alert, Oriented Labs: CBC, BMP 01/26/18 10:50 01/27/18 06:00 INR, PTT INR 1.28 (0.82-1.09) H 01/25/18 11:10 Problem List - Problems (1) Anemia in chronic kidney disease (CKD) Assessment/Plan: fu labs on procrit and fe Code(s): N18.9 - CHRONIC KIDNEY DISEASE, UNSPECIFIED; D63.1 - ANEMIA IN CHRONIC KIDNEY DISEASE (2) Chronic atrial fibrillation Assessment/Plan: on blood thinner and other meds Code(s): I48.2 - CHRONIC ATRIAL FIBRILLATION (3) End-stage kidney disease Assessment/Plan: on HD now..first time for recanalization of fistula...on Code(s): N18.6 - END STAGE RENAL DISEASE (4) Hypertension Assessment/Plan: on meds stable Code(s): I10 - ESSENTIAL (PRIMARY) HYPERTENSION
--- NOTE | 2018-01-27 18:06 | PN ---
Progress Note (short form) - Note Progress Note: Renal follow up for ESRD on HD Pt seen and examined in the HD unit no acute complaints s/p dialysis yesterday Vital Signs Temperature 97.7 F 01/27/18 15:02 Pulse Rate 83 01/27/18 15:02 Respiratory Rate 18 01/27/18 15:02 Blood Pressure 118/80 01/27/18 15:02 O2 Sat by Pulse Oximetry (%) 98 01/27/18 14:00 Intake & Output 01/24/18 01/25/18 01/26/18 01/27/18 23:59 23:59 23:59 23:59 Intake Total 100 120 120 Output Total 500 Balance 100 120 -380 Weight 51.528 kg 51.528 kg 50.712 kg NAD awake and alert RRR no M/R CTA soft NT/ND no LE edema CBC, BMP 01/26/18 10:50 01/27/18 06:00 Current Medications Amlodipine Besylate (Norvasc -) 5 mg PO DAILY [facility] Last Admin: 01/27/18 09:02 Dose: 5 mg Atorvastatin Calcium (Lipitor -) 10 mg PO HS [facility] Last Admin: 01/26/18 22:12 Dose: 10 mg Calcium Acetate (Phoslo -) 667 mg PO BIDWM [facility] Last Admin: 01/27/18 09:04 Dose: 667 mg Carvedilol 12.5 mg/ Carvedilol (6.25 mg) 18.75 mg PO BID [facility] Last Admin: 01/27/18 09:04 Dose: 18.75 mg Folic Acid (Folic Acid -) 1 mg PO DAILY [facility] Last Admin: 01/27/18 09:05 Dose: 1 mg Pantoprazole Sodium (Protonix -) 20 mg PO DAILY [facility] Last Admin: 01/27/18 09:01 Dose: 20 mg Sevelamer Carbonate (Renvela -) 800 mg PO BIDWM [facility] Last Admin: 01/27/18 09:08 Dose: 800 mg Sodium Bicarbonate (Sodium Bicarbonate -) 650 mg PO DAILY [facility] Last Admin: 01/27/18 09:01 Dose: 650 mg Torsemide (Demadex -) 100 mg PO DAILY [facility] Last Admin: 01/27/18 09:09 Dose: 100 mg Zolpidem Tartrate (Ambien -) 5 mg PO DAILY@1900 PRN PRN Reason: INSOMNIA 77 year old woman with CKD stage 5, Hypertension, Anemia persented with fatigue and uremic symptoms and started on HD #ESRD on HD #Hypertension #Recirculation #Anemia in CKD #Renal Osteodystrophy for angiogram of fistula tomorrow possible dialysis following outpatient dialysis has been arranged Renal diet, 1.2L fluid restriction will continue JUD with HD Fabian Fontanez DO
[2018-01-27] MEDS: ATORVASTATIN CA 10 MG TABLET (FP) PO SCH (21:32)
[2018-01-28 00:11] LABS: HBSAG SCREEN Negative (Negative); HEP A AB, IGM Negative (Negative); HEP B CORE AB, TOT Negative (Negative)
[2018-01-28] MEDS: CALCIUM ACETATE 667 MG CAPSULE (FP) PO SCH (09:04)
[2018-01-28] MEDS: SEVELAMER CARBONATE 800 MG TAB (FP) PO SCH (09:04)
[2018-01-28] MEDS ORDERED: HEPARIN NA (PORCINE) 5,000 UNITS/ML 1ML VIAL ONE (09:34)
[2018-01-28] MEDS ORDERED: LIDOCAINE HCL 1%, 10 MG/ML (20ML VIAL) ONE (09:34)
[2018-01-28] MEDS ORDERED: MIDAZOLAM HCL 2 MG/2 ML SINGLE DOSE VIAL ONE (09:53)
[2018-01-28] MEDS ORDERED: LIDOCAINE HCL 1%, 10 MG/ML (50 mL VIAL) IJ ONE ×2 (10:23)
[2018-01-28] MEDS ORDERED: ROCURONIUM BROMIDE 50 MG/5 ML VIAL ONE (10:50)
[2018-01-28] MEDS ORDERED: PROPOFOL 20 ML ONE (10:50)
[2018-01-28] MEDS ORDERED: IOHEXOL 300 MG/ML INFUS..BTL IV ONE (11:02)
--- NOTE | 2018-01-28 11:31 | OP ---
Operative Note - Note: Operative Date: 01/28/18 Pre-Operative Diagnosis: malfunctioning left AVF Operation: venogram, venoplasty, covered stent left avf Findings: occlusion of avf in body Post-Operative Diagnosis: Same as Pre-op Surgeon: Alfred Greer Anesthesia: Fractional Estimated Blood Loss (mls): 75 Operative Report Dictated: Yes
--- NOTE | 2018-01-28 11:34 | PN ---
Progress Note (short form) - Note Progress Note: Vascular surgery S/P venogram,venoplasty . Pt needed a covered stent due to extravasation of avf after the occlusion was ballooned. 7x37 covered stent placed in body of avf -- no more extravasation found. Spoke to daughter and nephology, -- no need for permacath at this time. Hematoma will probably take 3-4 weeks to go away fully. There is a good thrill and bruit in the fistula. spoke to daughter at length -- she will place cold compresses to area. Alfred Greer DO
[2018-01-28] MEDS ORDERED: ZOLPIDEM TARTRATE 5 MG TABLET PO PRN (11:44)
[2018-01-28] MEDS: CARVEDILOL 12.5 MG, CARVEDILOL 6.25 MG PO SCH (11:51)
[2018-01-28] MEDS: FOLIC ACID 1 MG TABLET (FP) PO SCH (11:51)
[2018-01-28] MEDS: TORSEMIDE 100 MG TABLET PO SCH (11:51)
[2018-01-28] MEDS: SODIUM BICARBONATE 650 MG TABLET PO SCH (11:52)
[2018-01-28] MEDS: PANTOPRAZOLE 20 MG TABLET (FP) PO SCH (11:52)
[2018-01-28] MEDS: amLODIPine BESYLATE 5 MG TABLET (FP) PO SCH (11:52)
--- NOTE | 2018-01-28 13:40 | OP ---
DATE OF OPERATION: 01/28/2018 PREOPERATIVE DIAGNOSIS: Malfunctioning left arteriovenous fistula. POSTOPERATIVE DIAGNOSIS: Malfunctioning left arteriovenous fistula. PROCEDURE: Venogram, venoplasty, covered stent placement of left arteriovenous fistula. SURGEON: Starr Gil MD ANESTHESIA: Fractional. BLOOD LOSS: 75 mL. INDICATIONS: The patient is a 77-year-old female who has a left AV fistula which was a basilic vein fistula that was created in [place]. Recently, here in the [facility], she had the fistula transposed. Now, she was admitted to the hospital, and they started dialysis from using the left AV fistula access. However, she was recirculating on the machine. On examination this morning, she did not have a thrill in her left AV fistula yet, and the fistula was pulsatile. Consents were obtained, patient and family understanding all risks, benefits, and alternatives. DESCRIPTION OF PROCEDURE: Patient was then brought into the operating room and laid on the operating table in the supine manner, and the area of the left arm was prepped and draped in the sterile surgical manner. Under ultrasound guidance, we visualized the proximal AV fistula, and 10 mL of lidocaine 1% was injected there. We then took our micropuncture needle, punctured the AV fistula. A micropuncture wire was inserted, micropuncture sheath was inserted, and a traditional short 6-Armenian sheath was inserted. Then, 5000 units of IV heparin were administered to the patient. We then shot a venogram by hand injection showing that in the body of the AV fistula, there was an occlusion for about 4 cm. the fistula was very sluggish where everything was flowing backwards. At this point, we placed a 0.035 floppy guidewire across our occlusion. We then went ahead and used an 8 x 6 [place] balloon. The area was ballooned, and thereafter, the patient started developing a hematoma in the left upper extremity, and upon shooting a venogram by hand injection, there was some extravasation. We then went ahead and quickly placed a 7 x 3.7 [employer] Covered Stent across our area that was extravasating. Once that was placed, we were able to shoot another venogram, and there was no more extravasation. The patient had a good thrill and a bruit, and there was good flow all the way up into the central veins. At this point, we used a 4-0 Biosyn stitch and a figure-of-8 stitch was placed around the sheath, and the sheath was pulled. The area was wet and dried, and Dermabond was placed. The patient tolerated the procedure with no complications. Patient transferred to PACU in stable condition. STARR GIL DO [id number]
[2018-01-28] MEDS ORDERED: ACETAMINOPHEN 325 MG TABLET (FP) PO PRN (14:26)
[2018-01-28] MEDS ORDERED: CARVEDILOL 12.5 MG, CARVEDILOL 6.25 MG PO SCH (14:30)
[2018-01-28 14:35] VITALS: BP 142/66; PULSE 66; TEMP 97.3
[2018-01-28] MEDS ORDERED: CARVEDILOL 6.25 MG TABLET (FP) ONE (14:46)
[2018-01-28] MEDS ORDERED: CARVEDILOL 12.5 MG TABLET (FP) ONE (14:46)
--- NOTE | 2018-01-28 17:12 | DS ---
Physical Examination Vital Signs: Vital Signs Temperature 97.3 F L 01/28/18 14:33 Pulse Rate 66 01/28/18 14:33 Respiratory Rate 18 01/28/18 14:33 Blood Pressure 142/66 01/28/18 14:33 O2 Sat by Pulse Oximetry (%) 95 01/28/18 14:00 Constitutional: Yes: No Distress HENT: Yes: Atraumatic Neck: Yes: Supple Cardiovascular: Yes: Regular Rate and Rhythm Respiratory: Yes: CTA Bilaterally Gastrointestinal: Yes: Normal Bowel Sounds Extremities: Yes: Other (left arm hematoma around fistula) Neurological: Yes: Alert, Oriented Labs: CBC, BMP 01/26/18 10:50 01/27/18 06:00 Discharge Summary Reason For Visit: RENAL FAILURE Current Active Problems Anemia in chronic kidney disease (CKD) (Acute) Chronic atrial fibrillation (Acute) End-stage kidney disease (Acute) Hypertension (Acute) Renal failure (Acute) Condition: Stable - Instructions Referrals: Rizwana Rutherford MD [Staff Physician] - - Home Medications Comprehensive Discharge Medication List: Ambulatory Orders Amlodipine Besylate 5 mg PO DAILY 01/25/18 Apixaban [Eliquis] 2.5 mg PO BID 01/25/18 Atorvastatin Ca [Lipitor] 10 mg PO HS 01/25/18 Calcium Acetate 667 mg PO TID 01/25/18 Calcium Carbonate [Tums] 200 mg PO DAILY 01/25/18 Carvedilol 12.5 mg PO BID 01/25/18 Carvedilol [Coreg] 6.25 mg PO BID 01/25/18 Cholecalciferol (Vitamin D3) [Vitamin D -] 50,000 unit PO WEEKLY 01/25/18 Epoetin Soy [Procrit] 20,000 unit SQ ASDIR 01/25/18 Ferrous Sulfate 325 mg PO BID 01/25/18 Folic Acid 1 mg PO DAILY 01/25/18 Pantoprazole Sodium [Protonix -] 20 mg PO DAILY 01/25/18 Sevelamer HCl [Renagel] 800 mg PO BID 01/25/18 Sodium Bicarbonate - 650 mg PO TID 01/25/18 Torsemide 100 mg PO DAILY 01/25/18 Vit B Comp No.3/Folic/C/Biotin [Kami-Jameel Rx Tablet] 1 each PO DAILY 01/25/18 dc home fu pmd/renal
[2018-01-28] MEDS ORDERED: CALCIUM ACETATE 667 MG CAPSULE (FP) PO SCH (17:30)
[2018-01-28] MEDS ORDERED: SEVELAMER CARBONATE 800 MG TAB (FP) PO SCH (17:30)
--- NOTE | 2018-01-28 17:42 | PN ---
Progress Note (short form) - Note Progress Note: Renal follow up for ESRD on HD Pt seen and examined in recovery room earlier today s/p fistulagram with hematoma formation following procedure no acute complaints Vital Signs Temperature 97.3 F L 01/28/18 14:33 Pulse Rate 66 01/28/18 14:33 Respiratory Rate 18 01/28/18 14:33 Blood Pressure 142/66 01/28/18 14:33 O2 Sat by Pulse Oximetry (%) 95 01/28/18 14:00 NAD awake and alert RRR no M/R CTA soft NT/ND no LE edema CBC, BMP 01/26/18 10:50 01/27/18 06:00 Current Medications Acetaminophen (Tylenol -) 325 mg PO Q6H PRN PRN Reason: PAIN LEVEL 1 - 3 Last Admin: 01/28/18 14:53 Dose: 325 mg Amlodipine Besylate (Norvasc -) 5 mg PO DAILY [facility] Atorvastatin Calcium (Lipitor -) 10 mg PO HS [facility] Calcium Acetate (Phoslo -) 667 mg PO BIDWM [facility] Last Admin: 01/28/18 17:37 Dose: 667 mg Carvedilol 12.5 mg/ Carvedilol (6.25 mg) 18.75 mg PO BID [facility] Last Admin: 01/28/18 14:54 Dose: 18.75 mg Folic Acid (Folic Acid -) 1 mg PO DAILY [facility] Pantoprazole Sodium (Protonix -) 20 mg PO DAILY [facility] Sevelamer Carbonate (Renvela -) 800 mg PO BIDWM [facility] Last Admin: 01/28/18 17:38 Dose: 800 mg Sodium Bicarbonate (Sodium Bicarbonate -) 650 mg PO DAILY [facility] Torsemide (Demadex -) 100 mg PO DAILY [facility] Zolpidem Tartrate (Ambien -) 5 mg PO DAILY@1900 PRN PRN Reason: INSOMNIA 77 year old woman with CKD stage 5, Hypertension, Anemia persented with fatigue and uremic symptoms and started on HD #ESRD on HD #Hypertension #Recirculation #Anemia in CKD #Renal Osteodystrophy #Hematoma will defer start of dialysis unit hematoma is resolved hold Eliquis for now to follow up in Dr. Melgoza office next week continue Torsemide and sodium bicarb Fabian Fontanez DO
[2018-01-28] MEDS ORDERED: ATORVASTATIN CA 10 MG TABLET (FP) PO SCH (22:00)
[2018-01-29] MEDS ORDERED: SODIUM BICARBONATE 650 MG TABLET PO SCH (10:00)
[2018-01-29] MEDS ORDERED: TORSEMIDE 100 MG TABLET PO SCH (10:00)
[2018-01-29] MEDS ORDERED: PANTOPRAZOLE 20 MG TABLET (FP) PO SCH (10:00)
[2018-01-29] MEDS ORDERED: FOLIC ACID 1 MG TABLET (FP) PO SCH (10:00)
[2018-01-29] MEDS ORDERED: amLODIPine BESYLATE 5 MG TABLET (FP) PO SCH (10:00)
== END 2018-01-28 19:04 | disposition home or self-care (01) | DRG 447 ==
LOC: JER 08:36 → JERBED 11:59 → J7W 21:10 → OBSVTOIN 01-27 10:29
PROVIDERS: ADMIT Internal Medicine; ATTEND Internal Medicine
PROC: 5A1D70Z Performance of Urinary Filtration, Intermittent, Less than 6 Hours Per Day (ICD-10-PCS; 2018-01-27)
PROC: 057C3DZ Dilation of Left Basilic Vein with Intraluminal Device, Percutaneous Approach (ICD-10-PCS; principal; 2018-01-28 09:30)
PROC: B51WZZA Fluoroscopy of Dialysis Shunt/Fistula, Guidance (ICD-10-PCS; 2018-01-28 09:30)
DX: I12.0 Hypertensive chronic kidney disease with stage 5 chronic kidney disease or end stage renal disease (principal); T82.858A Stenosis of other vascular prosthetic devices, implants and grafts, initial encounter; N18.6 End stage renal disease; N25.0 Renal osteodystrophy; Z94.0 Kidney transplant status; D63.1 Anemia in chronic kidney disease; I48.2 Chronic atrial fibrillation; Y83.2 Surgical operation with anastomosis, bypass or graft as the cause of abnormal reaction of the patient, or of later complication, without mention of misadventure at the time of the procedure; Z79.01 Long term (current) use of anticoagulants
CPT/HCPCS: 36415; 71045-TC-FY; 76000-TC-FY; 80048; 80053; 81003; 81015; 83735; 84100; 85025; 85027; 85610; 85730; 86704; 86706; 86708; 87086; 87340; 93005; 93010; 93931; 93971; 94760; 99285-25; G0378; J0885; J1644

== ENCOUNTER 2018-05-26 10:15 | Day surgery (SDC) | payer OTHER ==
[2018-05-25 12:27] VITALS: BMI 19.7
--- NOTE | 2018-05-26 08:12 | HP ---
History & Physical Update - History History: No Change - Physical Physical: No Change - Assessment Assessment: No Change - Plan Plan: No Change
[2018-05-26] MEDS ORDERED: LIDOCAINE HCL 2% (20ML MULTI-DOSE VIAL) NR ONE (10:56)
[2018-05-26] MEDS ORDERED: MIDAZOLAM HCL 2 MG/2 ML SINGLE DOSE VIAL ONE (11:51)
[2018-05-26] MEDS ORDERED: ROPIVACAINE HCL 0.5% 30ML VIAL ONE (11:51)
[2018-05-26] MEDS ORDERED: DEXAMETHASONE SOD PHOSPHATE/PF 10 MG/ML SDV ONE (11:51)
[2018-05-26] MEDS ORDERED: ceFAZolin SODIUM 1 GM VIAL IVPB ONE (12:12)
[2018-05-26] MEDS ORDERED: ceFAZolin SODIUM 1 GM VIAL ONE (12:20)
[2018-05-26] MEDS ORDERED: SODIUM CHLORIDE 0.9% P/F 10 ML VIAL IJ ONE ×2 (12:20→13:38)
[2018-05-26] MEDS ORDERED: LIDOCAINE HCL 1%, 10 MG/ML (50 mL VIAL) IJ ONE ×2 (12:25)
[2018-05-26] MEDS ORDERED: POVIDONE-IODINE OINTMENT 10% - 28.4 GM TUBE TP ONE (12:33)
[2018-05-26] MEDS ORDERED: hydrALAZINE HCL 20 MG/ML VIAL ONE (13:37)
--- NOTE | 2018-05-26 14:03 | OP ---
Operative Note - Note: Operative Date: 05/26/18 Pre-Operative Diagnosis: End stage renal failure Operation: Left arm AV graft creation Post-Operative Diagnosis: Same as Pre-op Surgeon: Adam Trujillo Etcher Enameling: Herber Ordonez Anesthesiologist/RN PLACEMENT: [place] Chun Anesthesia: MAC Estimated Blood Loss (mls): 100 Fluid Volume Replaced (mls): 150 Operative Report Dictated: Yes
--- NOTE | 2018-05-26 14:03 | OP ---
Operative Note - Note: Operative Date: 05/26/18 Pre-Operative Diagnosis: ESRD on HD Operation: Placement AV graft left arm Findings: Patent axillary artery and vein Implants: 4-7 mm Propaten graft Post-Operative Diagnosis: Same as Pre-op Surgeon: Adam Trujillo Smelter Liner: Herber Ordonez Anesthesia: MAC (Axillary block) Estimated Blood Loss (mls): 100
--- NOTE | 2018-05-26 14:04 | SURG ---
Surgery Fly Winder Note Fly Winder: Herber Ordonez PA-C Date of Service: 05/26/18 Diagnosis: End stage renal failure Procedure: Left arm AV graft creation I was present for the entirety of the operative procedure. For further detail, please refer to operative report.
[2018-05-26] MEDS ORDERED: ONDANSETRON 4 MG/2 ML VIAL IVPUSH PRN (14:28)
[2018-05-26 18:25] VITALS: BP 123/63; PULSE 89; TEMP 97.9
--- NOTE | 2018-06-01 10:38 | OP ---
DATE OF OPERATION: 05/26/2018 SURGEON: Adam Trujillo MD PAINTER SET: Herber Ordonez PA-C PROCEDURE: Placement of arteriovenous graft left arm. PREOPERATIVE DIAGNOSIS: End-stage renal disease on hemodialysis. POSTOPERATIVE DIAGNOSIS: End-stage renal disease on hemodialysis. ANESTHESIA: Axillary block with sedation. ANESTHESIOLOGIST: . OPERATIVE FINDINGS: The axillary artery and vein were patent. OPERATIVE PROCEDURE: Following routine patient identification with side and site verification, a right arm axillary block was placed. The arm was then prepped with ChloraPrep. Timeout was performed. Skin incision was made in the right axilla using supplemental 1% lidocaine. The axillary vein was exposed and secured proximally and distally with vessel loops. The adjacent axillary artery was then dissected. It was encircled with vessel loops. Side branches were ligated with silk ties and divided. A counter-incision was then made proximal to the elbow crease. A curved metal tunneler was passed between the 2 incisions and a 4.7-mm Propaten stretch graft was passed through the tunneler. The tunneler was then passed again to create a loop over the anterior aspect of the arm. The graft was passed through the tunneler so both ends lie in the axilla. The artery was then occluded with vessel loops and opened on the exposed surface with a 5-mm arteriotomy. The small end of the graft was anastomosed to the artery with running suture of 6-0 Prolene. Prior to completion of the suture line, the artery was allowed to back bleed and flush. The graft was occluded with a vascular clamp. Suture line was completed and the artery was released. There was return of normal brachial pulse. The graft was pulled taught in its tunnel. The vein was occluded with bulldog clamp proximally and vessel loop distally. A longitudinal venotomy was made, measuring approximately 15 mm. The end of the graft was beveled and anastomosis to the vein with running suture of 6-0 Prolene. Upon completion of the suture line, the vein was flushed with heparin solution and the graft was allowed to flush and was filled with heparin solution. The suture line was completed and all vessels were released. There was good flow through the graft. Bleeding from the suture line was controlled with Surgicel. Hemostasis was achieved. The wounds were irrigated and closed using 3-0 Vicryl in the subcutaneous tissues and skin cliff. Sterile dressings were applied. The patient was taken to the recovery room in stable condition. Yamile HERNANDEZ/[id number]
== END 2018-05-26 18:15 | disposition home or self-care (01) ==
LOC: JASU-SURG 10:15
PROVIDERS: ATTEND Surgery
PROC: 03160JD Bypass Left Axillary Artery to Upper Arm Vein with Synthetic Substitute, Open Approach (ICD-10-PCS; principal; 2018-05-26 11:30)
DX: I12.0 Hypertensive chronic kidney disease with stage 5 chronic kidney disease or end stage renal disease (principal); N18.6 End stage renal disease; Z99.2 Dependence on renal dialysis
CPT/HCPCS: 36415; 84132; 94760

== ENCOUNTER 2018-05-27 02:24 | Emergency (ER) | payer OTHER ==
[2018-05-27 03:29] VITALS: TEMP 98.3; BMI 20.4
--- NOTE | 2018-05-27 03:48 | PDOC ---
History of Present Illness - General Chief Complaint: AV shunt bleeding Stated Complaint: BLEEDING WOUND, BLOOD IN URINE Time Seen by Provider: 05/27/18 03:47 History Source: Patient, Family (Daughter present for interview) Exam Limitations: No Limitations - History of Present Illness Initial Comments: 77 y/o female presenting to [facility] ER via private auto complaining of bleeding from newly placed dialysis AV fistula. Fistula was placed at this facility yesterday (05/26/2018) by Dr. Adam Trujillo. Daughter reports small amount of bleeding was presenting immediately post-op. It became acutely worse during the night, and she became worried. Pt additionally reported hematuria and frequency for the past few days. Would like it evaluated while in the department. Shunt in upper left arm. No sensation as nerve block. PCP: [facility] Hx: - ESRD, on dialysis - HTN - Afib, previously on Eliquis, stopped several weeks ago Past History - Past Medical History Allergies/Adverse Reactions: Allergies Allergy/AdvReac Type Severity Reaction Status Date / Time No Known Allergies Allergy Verified 05/27/18 07:05 Home Medications: Ambulatory Orders Amlodipine Besylate 5 mg PO DAILY 01/25/18 Apixaban [Eliquis] 2.5 mg PO BID 01/25/18 Atorvastatin Ca [Lipitor] 10 mg PO HS 01/25/18 Calcium Acetate 667 mg PO TID 01/25/18 Carvedilol 12.5 mg PO BID 01/25/18 Carvedilol [Coreg] 6.25 mg PO BID 01/25/18 Cholecalciferol (Vitamin D3) [Vitamin D -] 50,000 unit PO WEEKLY 01/25/18 Epoetin Soy [Procrit] 20,000 unit SQ ASDIR 01/25/18 Folic Acid 1 mg PO DAILY 01/25/18 Sevelamer HCl [Renagel] 800 mg PO TID 01/25/18 Sodium Bicarbonate - 650 mg PO TID 01/25/18 Torsemide 100 mg PO DAILY 01/25/18 Vit B Comp No.3/Folic/C/Biotin [Kami-Jameel Rx Tablet] 1 each PO DAILY 01/25/18 Acetaminophen W/ Codeine #3 [Tylenol # 3 -] 1 tab PO Q6H PRN #10 tablet MDD 4 Docusate Sodium [Colace] 100 mg PO BID #30 capsule 05/26/18 Cephalexin [Keflex] 500 mg PO BID #14 capsule 05/27/18 Phenazopyridine HCl [Pyridium -] 200 mg PO TID 2 Days #6 tablet 05/27/18 Anemia: Yes Asthma: No Cancer: No Cardiac Disorders: Yes (A-FIB) CVA: No COPD: No CHF: No Dementia: No Diabetes: No Dialysis: Yes (JUST PREPARING TO START NOW,LT ARM FISTULA-07/2017) GI Disorders: No Disorders: Yes (RENAL FAILURE DIALYSIS [id number]) HTN: Yes Hypercholesterolemia: Yes Liver Disease: No Seizures: No Thyroid Disease: No - Suicide/Smoking/Psychosocial Hx Smoking History: Never smoked Have you smoked in the past 12 months: No Information on smoking cessation initiated: No Hx Alcohol Use: No Drug/Substance Use Hx: No Substance Use Type: None Hx Substance Use Treatment: No Review of Systems - Review of Systems Comments:: In addition to that documented in the HPI above, the additional ROS was obtained : Constitutional: Denies fevers or chills Eyes: Denies vision changes ENMT: Denies sore throat CV: Denies chest pain Resp: Denies SOB GI: Denies vomiting or diarrhea *Physical Exam - Vital Signs Last Vital Signs Temp Pulse Resp BP Pulse Ox 98.3 F 71 20 134/71 99 05/27/18 02:25 05/27/18 02:25 05/27/18 02:25 05/27/18 02:25 05/27/18 02:25 - Physical Exam Comments: Constitutional: Well-developed, well-nourished female in no acute distress. Found semi-fowlers in hospital bed. Alert and oriented x4. Answered all questions appropriately and completely. Speech was non-labored, non-pressured. HEENT: Normocephalic. No obvious external signs of trauma. Hearing grossly normal. No nasal discharge. Neck is supple, trachea is midline. Cardiovascular: Irregularly irregular rate and rhythm. No murmur, rubs, clicks , or gallops. Peripheral pulses: Radial pulses full. Respiratory: Breathing unlabored. Equal chest rise and fall. Clear to auscultation bilaterally. No stridor, no wheezing, no rhonchi. Gastrointestinal: abdomen is soft, non-tender, non-distended. Neuro: Alert and oriented. Moving all four extremities spontaneously. No sensation to left upper extremity. MSK / Skin: Two surgical bandages on upper left extremity, Proximal site covered with clear dressing and without obvious bleeding. Distal site covered by abd pad and cling, soaked without dripping. Globally skin is warm and dry. Psych: Affect: appropriate. Mood: normal. ED Treatment Course - LABORATORY CBC & Chemistry Diagram: 05/27/18 04:55 05/27/18 07:25 Medical Decision Making - Medical Decision Making *Reviewed vital signs, nursing notes, and prior visit documentation (if available). Pressure dressing applied to old graft site. Will obtain CBC to check H/H and BMP. Pt has not taken Eliquis in over two months. CBC did not reveal anemia. Initial BMP hemolyzed. Will order repeat. UA revealed protein, glucose, blood, pyuria, and leukocyte esterase. Suspect UTI and ESRD. On re-eval, some bleeding soaking through the middle part of the dressing wrap. Dressing taken down and revealed blood oozing from old graft site. 06:[address] Trujillo. Requested the pt stay in the department and he will evaluate shortly. 07:00 Pt signed out to Dr. Tovar after she was verbally appraised HPI and pts current condition. Awaiting evaluation by Dr. Trujillo. Antibiotics already sent to pharmacy for UTI. Pt to follow up outpatient with urology regarding blood in urine. *DC/Admit/Observation/Transfer Diagnosis at time of Disposition: End-stage kidney disease Dialysis AV fistula malfunction Qualifiers: Encounter type: initial encounter Qualified Code(s): T82.590A - Other mechanical complication of surgically created arteriovenous fistula, initial encounter UTI (urinary tract infection) Qualifiers: Urinary tract infection type: site unspecified Hematuria presence: with hematuria Qualified Code(s): N39.0 - Urinary tract infection, site not specified ; R31.9 - Hematuria, unspecified - Discharge Dispostion Disposition: HOME Condition at time of disposition: Improved Decision to Admit order: No - Prescriptions Prescriptions: Cephalexin [Keflex] 500 mg PO BID #14 capsule Phenazopyridine HCl [Pyridium -] 200 mg PO TID 2 Days #6 tablet - Referrals - Patient Instructions Printed Discharge Instructions: How to Care for a Surgical Wound, DI for Arteriovenous Fistula for Dialysis Additional Instructions: You were seen in the ED for complaints of AV fistula bleeding and blood in the urine. In the ED you were evaluated with labwork and vascular surgery assessment. Your results were remarkable for blood in the urine. Follow up with your urologist as planned for more testing for the blood in your urine. While this may be from an infection, or kidney problems, sometimes this can be a sign of cancer and must be ruled out with your urologist. At this time there does not appear to be an acute need for immediate hospitalization. You are advised to follow up with vascular surgery and your primary care physician within 1 week. Return to the ED immediately if you experience rebleeding of the wound site, worsening blood in the urine, fevers, blood in the stool, abdominal pain, arm pain, headaches, chest pain or shortness of breath. - Post Discharge Activity
--- NOTE | 2018-05-27 04:53 | PDOC ---
Attending Attestation - Medical Decision Making 05/27/18 06:[address] Trujillo's answering service, awaiting call back. 05/27/18 06:[address] Trujillo, case discussed with resident. <Kaushik Higgins - Last Filed: 05/27/18 06:42> - Resident Resident Name: Jevon Martinez - ED Attending Attestation I have performed the following: I have examined & evaluated the patient, The case was reviewed & discussed with the resident, I agree w/resident's findings & plan, Exceptions are as noted - HPI HPI: 05/27/18 05:32 The patient is a 77 year old female, with a significant past medical history of ESRD(dialysis M,W,F), AFib, anemia, and hypertension, who presents to the emergency department with, a bleeding left arm AV fistula. As per patient, she had her fistula changed yesterday by Dr. Trujillo and was told minimal bleeding was normal. She normally changes he bandage every 2 hours but, noticed that the blood was oozing through the bandage more rapidly prompting her visit to the ED today. The patient also endorses hematuria and urinary frequency for the past few days which she has an appointment with a urologist set up for. The patient is not currently on any blood thinners. She denies recent fevers, chills, headache or dizziness. She denies recent nausea, vomit, diarrhea or constipation. She denies recent dysuria or urgency . She denies recent chest pain or shortness of breath. Allergies: NKA Past surgical history: Left arm AV fistula Social history: Nonsmoker. Denies EtOH use and recreational drug use. Vascular: Dr. Greer - Physicial Exam PE: 05/27/18 05:32 Agree with resident exam - Medical Decision Making 05/27/18 05:32 77yo F presents to the ED with oozing from newly placed AVF graft. Vitals wnl. PRessure dressing placed onto graft site, dressing has no soaked through. WIll check labs and observe. Pt also c/o hematura and frequency, has outpt uro f/u. WIll check UA. 05/27/18 06:50 On re-evaluation, pt has soaked through gauze again. Continues to ooze from old AV graft (distal). Case discussed with Dr. Campa who will come down to evaluate pt. UA+ for infection. Will treat. ALso, with regards to hematuria, pt will be arranging for urology f/u. <Stefania Amaya - Last Filed: 05/27/18 06:51> Attestations - Attestations 05/27/18 06:30 Documentation prepared by Kaushik Higgins, acting as medical officer psychiatry for Stefania Amaya MD. <Kaushik Higgins - Last Filed: 05/27/18 06:42>
[2018-05-27 05:15] LABS: HEMOGLOBIN 13.8 GM/dL (10.7-15.3); MCH 29.7 pg (25.7-33.7); MCHC 32.9 g/dl (32.0-36.0); MEAN CELL VOLUME 90.3 fl (80-96); MEAN PLT VOLUME 8.4 fl (7.5-11.1); PLATELET COUNT 169 K/MM3 (134-434); RBC 4.65 M/mm3 (3.60-5.2); RDW 16.5 % (11.6-15.6); WHITE BLOOD COUNT 6.9 K/mm3 (4.0-10.0)
[2018-05-27 05:27] LABS: URINE APPEARANCE SLCLOUDY; URINE BILIRUBIN NEGATIVE (<2.0 mg/dL); URINE COLOR RED; URINE GLUCOSE (UA) 2+ (NEGATIVE); URINE KETONE NEGATIVE (NEGATIVE); URINE NITRITE NEGATIVE (NEGATIVE); URINE UROBILINOGEN NEGATIVE mg/dL (0.2-1.0)
[2018-05-27 05:52] LABS: URINE LEUK ESTERASE 2+ (NEGATIVE); URINE PROTEIN 2+ (NEGATIVE)
[2018-05-27 06:00] LABS: EPI CELLS MODERATE /HPF (FEW); YEAST FEW
--- NOTE | 2018-05-27 07:05 | PDOC ---
*Physical Exam - Vital Signs Last Vital Signs Temp Pulse Resp BP Pulse Ox 98.3 F 66 16 149/63 98 05/27/18 02:25 05/27/18 06:37 05/27/18 06:37 05/27/18 06:37 05/27/18 06:37 - Physical Exam Comments: 05/27/18 07:28 GENERAL: Awake, alert, and fully oriented, in no acute distress HEAD: No signs of trauma, normocephalic, atraumatic EYES: PERRLA, EOMI, sclera anicteric, conjunctiva clear ENT:oropharynx clear without exudates. Moist mucosa NECK: Normal ROM, supple, no lymphadenopathy, JVD, or masses LUNGS: No distress, speaks full sentences, clear to auscultation bilaterally HEART: Regular rate and rhythm, normal S1 and S2, no murmurs, rubs or gallops, peripheral pulses normal and equal bilaterally. EXTREMITIES : + L AC fossa janki wrapped, no edema. No clubbing or cyanosis. NEUROLOGICAL: Normal speech, normal gait, no focal sensorimotor deficits SKIN: Warm, Dry, normal turgor, no rashes or lesions noted ED Treatment Course - LABORATORY CBC & Chemistry Diagram: 05/27/18 04:55 05/27/18 07:25 - ADDITIONAL ORDERS Additional order review: Laboratory Results 05/27/18 05/27/18 04:55 04:50 Sodium Cancelled Potassium Cancelled Chloride Cancelled Carbon Dioxide Cancelled Anion Gap Cancelled BUN Cancelled Creatinine Cancelled Creat Clearance w eGFR Cancelled Random Glucose Cancelled Calcium Cancelled Urine Color Red Urine Appearance Slcloudy Urine pH 9.0 H Ur Specific [place] 1.004 Urine Protein 2+ H Urine Glucose (UA) 2+ H Urine Ketones Negative Urine Blood 3+ H Urine Nitrite Negative Urine Bilirubin Negative Urine Urobilinogen Negative Ur Leukocyte Esterase 2+ H Urine WBC (Auto) 223 Urine RBC (Auto) 752 Ur Epithelial Cells Moderate Urine Yeast Few 05/27/18 04:55 RBC 4.65 MCV 90.3 MCHC 32.9 RDW 16.5 H MPV 8.4 Medical Decision Making - Medical Decision Making 05/27/18 07:05 Pt signed out by Dr. Martinez 05/27/18 07:29 Pt assessed. Stable. resting comfortably. L fistula janki wrapped. Per overnight team, hemostasis not achieved on wound, but bleeding slow and minimally, not soaking dressing. Shannan to see pt shortly, will take down dressing at that time. 05/27/18 08:28 Dr. Campbell at bedside. 05/27/18 08:[address] Campbell. stitch placed. hemostasis achieved. observe for 1 hour for rebleed if hemostatic. pt can be discharged and follow up outpatient. Patient reassessed. Hemostatic wound site. Patient stable for discharge. Given follow up instructions and strict return precautions. Patient reports urology appointment this week. Patient expressed understanding and agreed to plan. *DC/Admit/Observation/Transfer Diagnosis at time of Disposition: End-stage kidney disease, Dialysis AV fistula malfunction, UTI (urinary tract infection) - Discharge Dispostion Disposition: HOME Condition at time of disposition: Improved Decision to Admit order: No - Prescriptions Prescriptions: Cephalexin [Keflex] 500 mg PO BID #14 capsule Phenazopyridine HCl [Pyridium -] 200 mg PO TID 2 Days #6 tablet - Referrals - Patient Instructions Printed Discharge Instructions: How to Care for a Surgical Wound, DI for Arteriovenous Fistula for Dialysis Additional Instructions: You were seen in the ED for complaints of AV fistula bleeding and blood in the urine. In the ED you were evaluated with labwork and vascular surgery assessment. Your results were remarkable for blood in the urine. Follow up with your urologist as planned for more testing for the blood in your urine. While this may be from an infection, or kidney problems, sometimes this can be a sign of cancer and must be ruled out with your urologist. At this time there does not appear to be an acute need for immediate hospitalization. You are advised to follow up with vascular surgery and your primary care physician within 1 week. Return to the ED immediately if you experience rebleeding of the wound site, worsening blood in the urine, fevers, blood in the stool, abdominal pain, arm pain, headaches, chest pain or shortness of breath. - Post Discharge Activity
[2018-05-27] MEDS ORDERED: CEPHALEXIN MONOHYDRATE 500 MG CAPSULE (UD) PO ONE (07:35)
[2018-05-27] MEDS ORDERED: CEPHALEXIN MONOHYDRATE 500 MG CAPSULE (UD) ONE (07:57)
[2018-05-27 08:27] LABS: ALBUMIN 3.1 g/dl (3.4-5.0); ANION GAP 9 MMOL/L (8-16); BILIRUBIN,TOTAL 0.4 mg/dL (0.2-1); BLOOD UREA NITROGEN 34 mg/dL (7-18); CHLORIDE 105 mmol/L (98-107); CO2 23 mmol/L (21-32); CREATININE 4.5 mg/dL (0.55-1.3); GLUCOSE,RANDOM 126 mg/dL (74-106); POTASSIUM 5.4 mmol/L (3.5-5.1); SGOT/AST 14 U/L (15-37); SGPT/ALT 14 U/L (13-61); SODIUM 137 mmol/L (136-145)
[2018-05-27 08:28] LABS: ALK PHOS 135 U/L (45-117); TOT PROT 6.9 g/dl (6.4-8.2)
--- NOTE | 2018-05-27 09:01 | PDOC ---
*Physical Exam - Vital Signs Last Vital Signs Temp Pulse Resp BP Pulse Ox 98.3 F 66 16 149/63 98 05/27/18 02:25 05/27/18 06:37 05/27/18 06:37 05/27/18 06:37 05/27/18 06:37 ED Treatment Course - LABORATORY CBC & Chemistry Diagram: 05/27/18 04:55 05/27/18 07:25 - ADDITIONAL ORDERS Additional order review: Laboratory Results 05/27/18 05/27/18 05/27/18 07:25 06:56 04:55 Sodium 137 Cancelled Cancelled Potassium 5.4 H Cancelled Cancelled Chloride 105 Cancelled Cancelled Carbon Dioxide 23 Cancelled Cancelled Anion Gap 9 Cancelled Cancelled BUN 34 H Cancelled Cancelled Creatinine 4.5 H Cancelled Cancelled Creat Clearance w eGFR 9.45 Cancelled Cancelled Random Glucose 126 H Cancelled Cancelled Calcium 9.0 Cancelled Cancelled Total Bilirubin 0.4 AST 14 L ALT 14 Alkaline Phosphatase 135 H Total Protein 6.9 Albumin 3.1 L Urine Color Urine Appearance Urine pH Ur Specific [place] Urine Protein Urine Glucose (UA) Urine Ketones Urine Blood Urine Nitrite Urine Bilirubin Urine Urobilinogen Ur Leukocyte Esterase Urine WBC (Auto) Urine RBC (Auto) Ur Epithelial Cells Urine Yeast 05/27/18 04:50 Sodium Potassium Chloride Carbon Dioxide Anion Gap BUN Creatinine Creat Clearance w eGFR Random Glucose Calcium Total Bilirubin AST ALT Alkaline Phosphatase Total Protein Albumin Urine Color Red Urine Appearance Slcloudy Urine pH 9.0 H Ur Specific [place] 1.004 Urine Protein 2+ H Urine Glucose (UA) 2+ H Urine Ketones Negative Urine Blood 3+ H Urine Nitrite Negative Urine Bilirubin Negative Urine Urobilinogen Negative Ur Leukocyte Esterase 2+ H Urine WBC (Auto) 223 Urine RBC (Auto) 752 Ur Epithelial Cells Moderate Urine Yeast Few 05/27/18 04:55 RBC 4.65 MCV 90.3 MCHC 32.9 RDW 16.5 H MPV 8.4 - Medications Given in the ED: ED Medications Discontinued Medications Generic Name Dose Route Start Last Admin Trade Name Freq PRN Reason Stop Dose Admin Cephalexin HCl 500 mg 05/27/18 07:35 05/27/18 08:03 Keflex - PO 05/27/18 07:36 500 mg ONCE ONE Administration Medical Decision Making - Medical Decision Making 05/27/18 09:[address] Amaya at 7am pending vascular cs and bleeding control 77 year old female, with a significant past medical history of ESRD(dialysis M,W ,F), AFib, anemia, and hypertension, who presents to the emergency department with, a bleeding left arm AV fistula VS stable, H/H wnl. no anemia. Cr baseline elevated with ESRD. normal lytes. bleeding controlled with bandaging and compression, Dr. Campa came for cs and put in stitch to stop bleeding, which has been controlled for remainder of ED stay. 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 return precautions discussed. keflex x 7 days. for UTI. pyridium for comfort. 05/27/18 09:56 05/27/18 09:58 *DC/Admit/Observation/Transfer Diagnosis at time of Disposition: End-stage kidney disease, Dialysis AV fistula malfunction, UTI (urinary tract infection) - Discharge Dispostion Disposition: HOME Condition at time of disposition: Improved Decision to Admit order: No - Prescriptions Prescriptions: Cephalexin [Keflex] 500 mg PO BID #14 capsule Phenazopyridine HCl [Pyridium -] 200 mg PO TID 2 Days #6 tablet - Referrals - Patient Instructions Printed Discharge Instructions: How to Care for a Surgical Wound, DI for Arteriovenous Fistula for Dialysis Additional Instructions: You were seen in the ED for complaints of AV fistula bleeding and blood in the urine. In the ED you were evaluated with labwork and vascular surgery assessment. Your results were remarkable for blood in the urine. Follow up with your urologist as planned for more testing for the blood in your urine. While this may be from an infection, or kidney problems, sometimes this can be a sign of cancer and must be ruled out with your urologist. At this time there does not appear to be an acute need for immediate hospitalization. You are advised to follow up with vascular surgery and your primary care physician within 1 week. Return to the ED immediately if you experience rebleeding of the wound site, worsening blood in the urine, fevers, blood in the stool, abdominal pain, arm pain, headaches, chest pain or shortness of breath. - Post Discharge Activity
[2018-05-27 10:08] VITALS: BP 162/89; PULSE 76
--- NOTE | 2018-05-27 10:08 | PROC ---
Procedure Note Procedure: Patient seen and examined at bedside with Dr Trujillo bleeding from Left arm ac fossa (distal site) s/p Left UE AVG yesterday. Cassandra confirmed the bleeding was not the anastamosis site and likely 2/2 a small bleed at the skin edge just between the cliff. Graft with palpable thrill throughout. Left UE soft, warm, well perfused, and non-tender with no evidence of hematoma or collection. After applying light pressure and surgicel, the area was prepped with chloroprep and draped with sterile suture drape. Under sterile prep and sterile technique 3cc of 1% lidocaine was injected along the margins of the incision. One staple was removed at the mid-portion of the incision and the skin was closed with 3-0 nylon in a horizontal mattress and simple interrupted technique. After the sutures were placed, the wound stopped bleeding. The area was again cleaned a light pressure dressing was applied with, surgicell, 4x4 and tegaderm. The dressing remained clean and dry after several minuets with no signs of bleeding. The patient tolerated the procedure well and will be discharged from the ER later this morning. The patient and her daughter were given verbal dressing care and follow up instructions by Dr Trujillo.
== END 2018-05-27 10:14 | disposition home or self-care (01) ==
LOC: JER 02:24
DX: T82.838A Hemorrhage due to vascular prosthetic devices, implants and grafts, initial encounter (principal); I12.0 Hypertensive chronic kidney disease with stage 5 chronic kidney disease or end stage renal disease; N18.6 End stage renal disease; I48.91 Unspecified atrial fibrillation; E78.00 Pure hypercholesterolemia, unspecified; Z79.01 Long term (current) use of anticoagulants
CPT/HCPCS: 36415; 80053; 81003; 81015; 85027; 87086; 99282-25

== ENCOUNTER 2023-03-09 17:40 | Inpatient (IN) | payer OTHER ==
[2023-03-09 20:11] LABS: BASO % 0.2 % (0-2.0); EOS % 0.9 % (0-4.5); HEMATOCRIT 36.6 % (32.4-45.2); LYMPH % 10.5 % (8-40); MCH 28.4 pg (25.7-33.7); MCHC 29.9 g/dl (32.0-36.0); MEAN CELL VOLUME 94.7 fl (80-96); MONO % 5.4 % (3.8-10.2); PLATELET COUNT 131 10^3/uL (134-434); RBC 3.86 M/mm3 (3.60-5.2); RDW 14.8 % (11.6-15.6); WHITE BLOOD COUNT 10.4 K/mm3 (4.0-10.0)
[2023-03-09 20:21] LABS: POTASSIUM 4.1 mmol/L (3.5-5.1)
[2023-03-09 20:24] LABS: ALBUMIN 2.8 g/dl (3.4-5.0); BLOOD UREA NITROGEN 73.3 mg/dL (7-18); MAGNESIUM 2.4 mg/dL (1.8-2.4)
[2023-03-09 20:27] LABS: CREATININE 4.1 mg/dL (0.55-1.3); PHOSPHOROUS 3.8 mg/dL (2.5-4.9)
[2023-03-09 20:28] LABS: BILIRUBIN,TOTAL 0.3 mg/dL (0.2-1); TOT PROT 6.7 g/dl (6.4-8.2)
[2023-03-09 20:51] LABS: N-TERMINAL BNP 46068.3 pg/ml (5-450)
[2023-03-09 20:58] LABS: VENOUS BASE EXCESS -3.9 mmol/L (-2-2); VENOUS O2 SATURATION 75.9 % (70-80)
[2023-03-09 20:59] LABS: VENOUS PCO2 82.5 mmHg (38-52); VENOUS PH 7.116 (7.310-7.410)
[2023-03-09] MEDS ORDERED: LIDOCAINE 5% TOPICAL PATCH TP ONE (22:00)
[2023-03-09] MEDS ORDERED: LIDOCAINE 5% TOPICAL PATCH ONE (22:01)
[2023-03-10] MEDS ORDERED: SENNOSIDES 8.6MG TABLET (FP) PO PRN (00:28)
[2023-03-10] MEDS ORDERED: VANCOMYCIN 1 GM/200 ML PREMIX BAG (RESTRICTED TO ID ONLY) IVPB ONE (00:45)
[2023-03-10 01:16] LABS: ARTERIAL BLD GAS O2 SATURATION 93.8 % (95-98); ARTERIAL BLOOD GAS PO2 89.6 mmHg (80-100)
[2023-03-10 01:19] LABS: ALLENS TEST POSITIVE; VENT MODE S/T
[2023-03-10 01:20] LABS: ARTERIAL BLOOD GAS pH 7.144 (7.350-7.450)
[2023-03-10] MEDS ORDERED: PIPERACILLIN/TAZOB 2.25 GM 2.25 GM/50 ML BAG IVPB ONE ×2 (02:38→14:55)
[2023-03-10] MEDS: PIPERACILLIN/TAZOB 2.25 GM 2.25 GM in DEXTROSE 5%-WATER - 50 ML IVPB SCH ×2 (02:41→15:15)
[2023-03-10] MEDS ORDERED: VANCOMYCIN/WATER FOR INJ (PEG) 1,000 MG/200 ML BAG IVPB ONE (03:13)
[2023-03-10 06:29] LABS: POTASSIUM 4.1 mmol/L (3.5-5.1)
[2023-03-10 06:32] LABS: CALCIUM 9.4 mg/dL (8.5-10.1)
[2023-03-10 06:33] LABS: ALBUMIN 2.7 g/dl (3.4-5.0); BLOOD UREA NITROGEN 78.4 mg/dL (7-18); MAGNESIUM 2.4 mg/dL (1.8-2.4)
[2023-03-10 06:35] LABS: CREATININE 4.5 mg/dL (0.55-1.3)
[2023-03-10 06:36] LABS: PHOSPHOROUS 3.6 mg/dL (2.5-4.9)
[2023-03-10 06:37] LABS: BILIRUBIN,TOTAL 0.5 mg/dL (0.2-1); TOT PROT 6.7 g/dl (6.4-8.2)
[2023-03-10 07:17] LABS: HEMATOCRIT 38.1 % (32.4-45.2); HEMOGLOBIN 11.5 GM/dL (10.7-15.3); MCH 28.6 pg (25.7-33.7); MCHC 30.1 g/dl (32.0-36.0); MEAN CELL VOLUME 95.1 fl (80-96); MEAN PLT VOLUME 8.8 fl (7.5-11.1); PLATELET COUNT 135 10^3/uL (134-434); RBC 4.01 M/mm3 (3.60-5.2)
[2023-03-10] MEDS ORDERED: PANTOPRAZOLE 20 MG TABLET PO ONE (08:48)
[2023-03-10] MEDS ORDERED: levETIRAcetam 500 MG TABLET (FP) PO ONE (08:49)
[2023-03-10] MEDS ORDERED: DOCUSATE SODIUM 100 MG CAPSULE (FP) PO ONE (08:49)
[2023-03-10] MEDS: CALCIUM ACETATE 667 MG CAPSULE (FP) PO SCH ×3 (09:01→18:07)
[2023-03-10] MEDS: SEVELAMER CARBONATE 800 MG TAB (FP) PO SCH ×4 (09:01→21:28)
[2023-03-10] MEDS: levETIRAcetam 500 MG TABLET (FP) PO SCH ×2 (09:01→21:28)
[2023-03-10] MEDS: DOCUSATE SODIUM 100 MG CAPSULE (FP) PO SCH ×2 (09:01→21:28)
[2023-03-10] MEDS: PANTOPRAZOLE 20 MG TABLET PO SCH (09:01)
[2023-03-10] MEDS ORDERED: SODIUM CHLORIDE 250 ML IV PRN (09:48)
[2023-03-10] MEDS ORDERED: CARVEDILOL 25 MG TABLET (FP) PO SCH (10:00)
[2023-03-10] MEDS ORDERED: MIDODRINE HCL 5 MG TABLET PO ONE (10:15)
[2023-03-10] MEDS: ALBUMIN HUMAN 25% 12.5 GM/50 ML VIAL IV SCH ×2 (14:05→14:06)
[2023-03-10] MEDS: TORSEMIDE 20 MG TABLET (FP) PO SCH (15:24)
[2023-03-10] MEDS: LIDOCAINE PATCH REMOVAL MC SCH ×2 (18:06→21:30)
[2023-03-10] MEDS: MIRTAZAPINE 15 MG TABLET (FP) PO SCH (21:28)
[2023-03-11] MEDS: DOCUSATE SODIUM 100 MG CAPSULE (FP) PO SCH ×2 (09:16→23:12)
[2023-03-11] MEDS: levETIRAcetam 500 MG TABLET (FP) PO SCH ×2 (09:16→23:12)
[2023-03-11] MEDS: PIPERACILLIN/TAZOB 2.25 GM 2.25 GM in DEXTROSE 5%-WATER - 50 ML IVPB SCH ×2 (09:16→23:12)
[2023-03-11] MEDS: SEVELAMER CARBONATE 800 MG TAB (FP) PO SCH ×4 (09:17→23:12)
[2023-03-11] MEDS: PANTOPRAZOLE 20 MG TABLET PO SCH (09:17)
[2023-03-11] MEDS: CALCIUM ACETATE 667 MG CAPSULE (FP) PO SCH ×3 (09:17→18:31)
[2023-03-11] MEDS: TORSEMIDE 20 MG TABLET (FP) PO SCH (09:18)
[2023-03-11] MEDS ORDERED: CARVEDILOL 25 MG TABLET (FP) PO SCH (12:15)
[2023-03-11 16:37] VITALS: BMI 17.7
[2023-03-11 17:02] VITALS: RESP 18
[2023-03-11] MEDS: AMINO ACIDS/PROTEIN HYDROLYS 30 ML LIQUID.PKT PO SCH (18:31)
[2023-03-11] MEDS: MIRTAZAPINE 15 MG TABLET (FP) PO SCH (23:12)
[2023-03-11] MEDS: LIDOCAINE PATCH REMOVAL MC SCH (23:13)
[2023-03-12] MEDS ORDERED: SODIUM CHLORIDE 250 ML IV PRN (07:36)
[2023-03-12] MEDS: ALBUMIN HUMAN 25% 12.5 GM/50 ML VIAL IV SCH ×4 (09:05→12:43)
[2023-03-12 09:47] LABS: HEMATOCRIT 33.8 % (32.4-45.2); HEMOGLOBIN 10.1 GM/dL (10.7-15.3); MCH 28.5 pg (25.7-33.7); MCHC 29.9 g/dl (32.0-36.0); MEAN CELL VOLUME 95.2 fl (80-96); MEAN PLT VOLUME 8.1 fl (7.5-11.1); PLATELET COUNT 131 10^3/uL (134-434); RBC 3.55 M/mm3 (3.60-5.2); RDW 13.9 % (11.6-15.6)
[2023-03-12 10:00] LABS: POTASSIUM 3.9 mmol/L (3.5-5.1)
[2023-03-12] MEDS ORDERED: MIDODRINE HCL 5 MG TABLET PO SCH (10:00)
[2023-03-12 10:07] LABS: BLOOD UREA NITROGEN 62.4 mg/dL (7-18)
[2023-03-12 10:08] LABS: CALCIUM 9.3 mg/dL (8.5-10.1)
[2023-03-12 10:10] LABS: CREATININE 4.4 mg/dL (0.55-1.3)
[2023-03-12] MEDS: CALCIUM ACETATE 667 MG CAPSULE (FP) PO SCH ×3 (10:44→17:57)
[2023-03-12] MEDS: AMINO ACIDS/PROTEIN HYDROLYS 30 ML LIQUID.PKT PO SCH ×3 (10:44→17:57)
[2023-03-12] MEDS: SEVELAMER CARBONATE 800 MG TAB (FP) PO SCH ×4 (10:45→21:41)
[2023-03-12] MEDS: VITAMIN B COMP W-C 1 EA TABLET (NEPHRO-VITE) PO SCH (13:18)
[2023-03-12] MEDS: DOCUSATE SODIUM 100 MG CAPSULE (FP) PO SCH ×2 (13:18→21:41)
[2023-03-12] MEDS: PANTOPRAZOLE 20 MG TABLET PO SCH (13:18)
[2023-03-12] MEDS: levETIRAcetam 500 MG TABLET (FP) PO SCH ×2 (13:18→21:41)
[2023-03-12] MEDS: TORSEMIDE 20 MG TABLET (FP) PO SCH (13:19)
[2023-03-12] MEDS: PIPERACILLIN/TAZOB 2.25 GM 2.25 GM in DEXTROSE 5%-WATER - 50 ML IVPB SCH (13:19)
[2023-03-12 14:33] LABS: ARTERIAL BLD GAS O2 SATURATION 98.2 % (95-98); ARTERIAL BLOOD GAS BASE EXCESS 0.8 mmol/L (-2-2); ARTERIAL BLOOD GAS PO2 133.6 mmHg (80-100); ARTERIAL BLOOD GAS pH 7.261 (7.350-7.450)
[2023-03-12 14:34] LABS: ALLENS TEST POSITIVE
[2023-03-12] MEDS: MIRTAZAPINE 15 MG TABLET (FP) PO SCH (21:41)
[2023-03-12] MEDS: LIDOCAINE PATCH REMOVAL MC SCH (21:41)
[2023-03-13] MEDS: CALCIUM ACETATE 667 MG CAPSULE (FP) PO SCH ×3 (08:21→17:25)
[2023-03-13] MEDS: AMINO ACIDS/PROTEIN HYDROLYS 30 ML LIQUID.PKT PO SCH ×3 (08:21→17:25)
[2023-03-13] MEDS: SEVELAMER CARBONATE 800 MG TAB (FP) PO SCH ×4 (08:21→22:32)
[2023-03-13] MEDS: DOCUSATE SODIUM 100 MG CAPSULE (FP) PO SCH ×2 (10:26→22:33)
[2023-03-13] MEDS: VITAMIN B COMP W-C 1 EA TABLET (NEPHRO-VITE) PO SCH (10:26)
[2023-03-13] MEDS: levETIRAcetam 500 MG TABLET (FP) PO SCH ×2 (10:27→22:32)
[2023-03-13] MEDS: PANTOPRAZOLE 20 MG TABLET PO SCH (10:27)
[2023-03-13] MEDS ORDERED: SODIUM CHLORIDE 250 ML IV PRN (11:14)
[2023-03-13] MEDS ORDERED: ACETAMINOPHEN 325 MG TABLET (FP) PO ONE (15:39)
[2023-03-13] MEDS: TORSEMIDE 20 MG TABLET (FP) PO SCH (17:25)
[2023-03-13 18:34] VITALS: BP 132/64; PULSE 66; TEMP 97.5
[2023-03-13] MEDS: MIRTAZAPINE 15 MG TABLET (FP) PO SCH (22:32)
[2023-03-13] MEDS: LIDOCAINE PATCH REMOVAL MC SCH (22:33)
[2023-03-14] MEDS: SEVELAMER CARBONATE 800 MG TAB (FP) PO SCH (03:11)
[2023-03-14] MEDS: DOCUSATE SODIUM 100 MG CAPSULE (FP) PO SCH (03:11)
[2023-03-14] MEDS: levETIRAcetam 500 MG TABLET (FP) PO SCH (03:12)
== END 2023-03-14 03:15 | disposition home or self-care (01) | DRG 194 ==
LOC: JER 17:40 → JERBED 21:32 → J5S 03-10 19:13
PROVIDERS: ADMIT Internal Medicine
PROC: 5A1D70Z Performance of Urinary Filtration, Intermittent, Less than 6 Hours Per Day (ICD-10-PCS; principal; 2023-03-10)
PROC: 5A1D70Z Performance of Urinary Filtration, Intermittent, Less than 6 Hours Per Day (ICD-10-PCS; 2023-03-12)
PROC: 5A1D70Z Performance of Urinary Filtration, Intermittent, Less than 6 Hours Per Day (ICD-10-PCS; 2023-03-13)
DX: I13.2 Hypertensive heart and chronic kidney disease with heart failure and with stage 5 chronic kidney disease, or end stage renal disease (principal); J96.01 Acute respiratory failure with hypoxia; J96.02 Acute respiratory failure with hypercapnia; E43 Unspecified severe protein-calorie malnutrition; L89.154 Pressure ulcer of sacral region, stage 4; L89.894 Pressure ulcer of other site, stage 4; I27.20 Pulmonary hypertension, unspecified; N18.6 End stage renal disease; J44.9 Chronic obstructive pulmonary disease, unspecified; I50.33 Acute on chronic diastolic (congestive) heart failure; J98.11 Atelectasis; I48.20 Chronic atrial fibrillation, unspecified; Z99.2 Dependence on renal dialysis; E87.70 Fluid overload, unspecified; R41.82 Altered mental status, unspecified; R53.83 Other fatigue; D63.1 Anemia in chronic kidney disease; G40.901 Epilepsy, unspecified, not intractable, with status epilepticus; Z90.5 Acquired absence of kidney
CPT/HCPCS: 36415; 36600; 70450-TC; 71045-TC-FY; 73030-TC-LT-FY; 80048; 80053; 82550; 82803; 83605; 83735; 83880; 84100; 84484; 85025; 85027; 86803; 87040; 87340; 87635; 93005; 93010; 94660; 99285-25; P9047

== ENCOUNTER 2023-03-24 01:57 | Inpatient (IN) | payer OTHER ==
[2023-03-24 02:14] VITALS: BMI 21.7
[2023-03-24] MEDS ORDERED: ACETAMINOPHEN INJECTION 100 ML IVPB ONE (02:53)
[2023-03-24] MEDS ORDERED: ACETAMINOPHEN 1000 MG/100 ML BAG IVPB ONE (02:53)
[2023-03-24 02:57] LABS: HEMATOCRIT 32.5 % (32.4-45.2); HEMOGLOBIN 10.2 GM/dL (10.7-15.3); MCH 28.7 pg (25.7-33.7); MCHC 31.2 g/dl (32.0-36.0); MEAN CELL VOLUME 91.9 fl (80-96); MEAN PLT VOLUME 8.2 fl (7.5-11.1); PLATELET COUNT 155 10^3/uL (134-434); RBC 3.54 M/mm3 (3.60-5.2); RDW 13.7 % (11.6-15.6); WHITE BLOOD COUNT 21.5 K/mm3 (4.0-10.0)
[2023-03-24 03:42] LABS: POTASSIUM 3.9 mmol/L (3.5-5.1)
[2023-03-24 03:45] LABS: CALCIUM 8.9 mg/dL (8.5-10.1)
[2023-03-24 03:47] LABS: BLOOD UREA NITROGEN 74.6 mg/dL (7-18)
[2023-03-24 03:49] LABS: CREATININE 3.1 mg/dL (0.55-1.3); PHOSPHOROUS 1.8 mg/dL (2.5-4.9)
[2023-03-24 03:50] LABS: BILIRUBIN,TOTAL 0.4 mg/dL (0.2-1); TOT PROT 6.8 g/dl (6.4-8.2)
[2023-03-24 05:09] LABS: VENOUS BASE EXCESS -0.4 mmol/L (-2-2); VENOUS O2 SATURATION 94.1 % (70-80); VENOUS PCO2 58.8 mmHg (38-52); VENOUS PH 7.28 (7.310-7.410)
[2023-03-24 06:28] LABS: EPI CELLS 24 /uL (0-25.1); HYALINE CASTS 1 /uL (0-3.1); URINE APPEARANCE CLEAR; URINE BACTERIA 24 /uL (0-1359); URINE BILIRUBIN NEGATIVE (NEGATIVE); URINE COLOR YELLOW; URINE GLUCOSE (UA) NEGATIVE (NEGATIVE); URINE KETONE NEGATIVE (NEGATIVE); URINE LEUK ESTERASE TRACE (NEGATIVE); URINE NITRITE NEGATIVE (NEGATIVE); URINE PROTEIN 2+ (NEGATIVE); URINE RBC 19 /uL (0-23.9); URINE UROBILINOGEN 0.2 mg/dL (0.2-1.0); URINE WBC 33 /uL (0-25.8)
[2023-03-24] MEDS ORDERED: PIPERACILLIN/TAZOB 4.5 GM 4.5 GM in DEXTROSE 5%-WATER 100 ML IVPB ONE (07:24)
[2023-03-24] MEDS ORDERED: VANCOMYCIN 1 GM in D5W (PRE-DOCKED) 1,000 MG/250 ML (RESTRICTED TO ID ONLY IVPB ONE (07:24)
[2023-03-24 08:53] LABS: ANISOCYTOSIS 1+; MACROCYTOSIS 0
[2023-03-24] MEDS ORDERED: PIPERACILLIN/TAZOB 4.5 GM 4.5 GM/100 ML BAG IVPB ONE (09:00)
[2023-03-24 09:13] LABS: ARTERIAL BLOOD GAS BASE EXCESS -1.7 mmol/L (-2-2); ARTERIAL BLOOD GAS PO2 82.4 mmHg (80-100); ARTERIAL BLOOD GAS pH 7.304 (7.350-7.450)
[2023-03-24 09:15] LABS: ALLENS TEST POSITIVE
[2023-03-24] MEDS ORDERED: SODIUM CHLORIDE 500 ML IV ONE ×2 (09:28→09:58)
[2023-03-24] MEDS ORDERED: ACETAMINOPHEN 1000 MG/100 ML BAG IVPB PRN (09:29)
[2023-03-24] MEDS ORDERED: PIPERACILLIN/TAZOB 2.25 GM 2.25 GM in DEXTROSE 5%-WATER - 50 ML IVPB SCH ×2 (09:30→18:00)
[2023-03-24] MEDS ORDERED: COLLAGENASE CLOSTRIDIUM HIST. 30 GRAMS TUBE TP SCH (10:00)
[2023-03-24] MEDS ORDERED: SENNOSIDES 8.6MG TABLET (FP) PO PRN (10:59)
[2023-03-24] MEDS ORDERED: SODIUM CHLORIDE 250 ML IV PRN (11:05)
[2023-03-24] MEDS ORDERED: VANCOMYCIN 1 GM/200 ML PREMIX BAG (RESTRICTED TO ID ONLY) IVPB ONE (12:45)
[2023-03-24] MEDS: SEVELAMER CARBONATE 800 MG TAB (FP) PO SCH ×2 (12:47→17:07)
[2023-03-24] MEDS: MIDODRINE HCL 5 MG TABLET PO SCH ×3 (12:47→17:07)
[2023-03-24] MEDS: VANCOMYCIN 500 MG in DEXTROSE 5%-WATER - 100 ML IVPB SCH ×2 (12:51→12:55)
[2023-03-24] MEDS: PIPERACILLIN/TAZOB 2.25 GM 2.25 GM in DEXTROSE 5%-WATER - 50 ML IVPB SCH (17:08)
[2023-03-24] MEDS: LORATADINE 10 MG TABLET PO SCH (22:17)
[2023-03-24] MEDS: DOCUSATE SODIUM 100 MG CAPSULE (FP) PO SCH (22:17)
[2023-03-24] MEDS: levETIRAcetam 500 MG TABLET (FP) PO SCH (22:18)
[2023-03-24] MEDS: MIRTAZAPINE 15 MG TABLET (FP) PO SCH (22:18)
[2023-03-24] MEDS: ATORVASTATIN CA 10 MG TABLET (FP) PO SCH (22:18)
[2023-03-25] MEDS: PIPERACILLIN/TAZOB 2.25 GM 2.25 GM in DEXTROSE 5%-WATER - 50 ML IVPB SCH ×3 (02:38→17:00)
[2023-03-25] MEDS ORDERED: ACETAMINOPHEN 1000 MG/100 ML BAG IVPB PRN (07:30)
[2023-03-25 07:49] LABS: BASO % 0.1 % (0-2.0); EOS % 0.5 % (0-4.5); HEMATOCRIT 28.5 % (32.4-45.2); HEMOGLOBIN 8.9 GM/dL (10.7-15.3); LYMPH % 7.6 % (8-40); MCH 28.6 pg (25.7-33.7); MCHC 31.2 g/dl (32.0-36.0); MEAN CELL VOLUME 91.9 fl (80-96); MEAN PLT VOLUME 8.1 fl (7.5-11.1); MONO % 3.5 % (3.8-10.2); NEUT % 88.3 % (42.8-82.8); PLATELET COUNT 138 10^3/uL (134-434); WHITE BLOOD COUNT 19.3 K/mm3 (4.0-10.0)
[2023-03-25] MEDS: SEVELAMER CARBONATE 800 MG TAB (FP) PO SCH ×3 (08:19→16:57)
[2023-03-25] MEDS: levETIRAcetam 500 MG TABLET (FP) PO SCH ×2 (10:28→21:29)
[2023-03-25] MEDS: MIDODRINE HCL 5 MG TABLET PO SCH ×3 (10:28→17:32)
[2023-03-25] MEDS ORDERED: HEPARIN NA (PORCINE) 5,000 UNITS/ML 1ML VIAL IVPUSH ONE (11:05)
[2023-03-25] MEDS: VITAMIN B COMP W-C 1 EA TABLET (NEPHRO-VITE) PO SCH (11:09)
[2023-03-25] MEDS: DOCUSATE SODIUM 100 MG CAPSULE (FP) PO SCH ×2 (11:09→21:28)
[2023-03-25 11:29] LABS: ALBUMIN 2.5 g/dl (3.4-5.0); CALCIUM 9.2 mg/dL (8.5-10.1)
[2023-03-25 11:30] LABS: MAGNESIUM 2.3 mg/dL (1.8-2.4)
[2023-03-25 11:32] LABS: CREATININE 4.2 mg/dL (0.55-1.3)
[2023-03-25 11:34] LABS: BILIRUBIN,TOTAL 0.2 mg/dL (0.2-1); PHOSPHOROUS 3.3 mg/dL (2.5-4.9)
[2023-03-25 11:36] LABS: TOT PROT 6.1 g/dl (6.4-8.2)
[2023-03-25 11:38] LABS: BLOOD UREA NITROGEN 100.4 mg/dL (7-18)
[2023-03-25] MEDS: COLLAGENASE CLOSTRIDIUM HIST. 30 GRAMS TUBE TP SCH (16:57)
[2023-03-25] MEDS: MIRTAZAPINE 15 MG TABLET (FP) PO SCH (21:28)
[2023-03-25] MEDS: CARVEDILOL 6.25 MG TABLET (FP) PO SCH (21:28)
[2023-03-25] MEDS: ATORVASTATIN CA 10 MG TABLET (FP) PO SCH (21:29)
[2023-03-25] MEDS: LORATADINE 10 MG TABLET PO SCH (21:29)
[2023-03-26] MEDS: PIPERACILLIN/TAZOB 2.25 GM 2.25 GM in DEXTROSE 5%-WATER - 50 ML IVPB SCH ×3 (01:20→17:24)
[2023-03-26 09:11] LABS: BASO % 0.3 % (0-2.0); EOS % 1.3 % (0-4.5); HEMATOCRIT 28.9 % (32.4-45.2); HEMOGLOBIN 8.9 GM/dL (10.7-15.3); LYMPH % 9.7 % (8-40); MCH 28.9 pg (25.7-33.7); MCHC 30.7 g/dl (32.0-36.0); MEAN PLT VOLUME 8.6 fl (7.5-11.1); MONO % 5.8 % (3.8-10.2); NEUT % 82.9 % (42.8-82.8); PLATELET COUNT 173 10^3/uL (134-434); RBC 3.07 M/mm3 (3.60-5.2); RDW 13.8 % (11.6-15.6); WHITE BLOOD COUNT 11.9 K/mm3 (4.0-10.0)
[2023-03-26 09:26] LABS: POTASSIUM 3.6 mmol/L (3.5-5.1)
[2023-03-26 10:09] LABS: ALBUMIN 2.6 g/dl (3.4-5.0); CALCIUM 9.1 mg/dL (8.5-10.1); MAGNESIUM 2.2 mg/dL (1.8-2.4)
[2023-03-26] MEDS: SEVELAMER CARBONATE 800 MG TAB (FP) PO SCH ×3 (10:12→17:22)
[2023-03-26] MEDS: DOCUSATE SODIUM 100 MG CAPSULE (FP) PO SCH ×2 (10:12→21:18)
[2023-03-26] MEDS: SENNOSIDES 8.6MG TABLET (FP) PO SCH (10:13)
[2023-03-26] MEDS: levETIRAcetam 500 MG TABLET (FP) PO SCH ×2 (10:13→21:17)
[2023-03-26] MEDS: VITAMIN B COMP W-C 1 EA TABLET (NEPHRO-VITE) PO SCH (10:13)
[2023-03-26 10:14] LABS: BILIRUBIN,TOTAL 0.6 mg/dL (0.2-1); TOT PROT 6.6 g/dl (6.4-8.2)
[2023-03-26] MEDS: CARVEDILOL 6.25 MG TABLET (FP) PO SCH ×2 (10:26→21:18)
[2023-03-26 10:28] LABS: BLOOD UREA NITROGEN 43.9 mg/dL (7-18)
[2023-03-26] MEDS: COLLAGENASE CLOSTRIDIUM HIST. 30 GRAMS TUBE TP SCH (11:15)
[2023-03-26] MEDS: POLYETHYLENE GLYCOL (HEALTHYLAX) 3350 17 GM PACKET PO SCH (12:26)
[2023-03-26] MEDS: AMINO ACIDS/PROTEIN HYDROLYS 30 ML LIQUID.PKT GT SCH (17:24)
[2023-03-26] MEDS: LORATADINE 10 MG TABLET PO SCH (21:17)
[2023-03-26] MEDS: ATORVASTATIN CA 10 MG TABLET (FP) PO SCH (21:17)
[2023-03-26] MEDS: MIRTAZAPINE 15 MG TABLET (FP) PO SCH (21:17)
[2023-03-27] MEDS: PIPERACILLIN/TAZOB 2.25 GM 2.25 GM in DEXTROSE 5%-WATER - 50 ML IVPB SCH ×2 (02:50→14:31)
[2023-03-27] MEDS ORDERED: SODIUM CHLORIDE 250 ML IV PRN ×2 (07:44→07:45)
[2023-03-27] MEDS ORDERED: HEPARIN NA (PORCINE) 5,000 UNITS/ML 1ML VIAL IVPUSH ONE (07:45)
[2023-03-27] MEDS ORDERED: EPOETIN ALFA-EPBX 2,000 UNIT, EPOETIN ALFA-EPBX 3,000 UNIT SQ ONE (08:00)
[2023-03-27] MEDS: AMINO ACIDS/PROTEIN HYDROLYS 30 ML LIQUID.PKT GT SCH ×2 (08:41→14:27)
[2023-03-27] MEDS: SEVELAMER CARBONATE 800 MG TAB (FP) PO SCH ×2 (08:41→14:27)
[2023-03-27 10:08] VITALS: RESP 18
[2023-03-27 10:29] LABS: BASO % 0.3 % (0-2.0); EOS % 1.7 % (0-4.5); HEMATOCRIT 28.2 % (32.4-45.2); HEMOGLOBIN 8.8 GM/dL (10.7-15.3); LYMPH % 17.7 % (8-40); MCH 29.1 pg (25.7-33.7); MEAN CELL VOLUME 93.8 fl (80-96); MEAN PLT VOLUME 8.1 fl (7.5-11.1); MONO % 5.9 % (3.8-10.2); NEUT % 74.4 % (42.8-82.8); PLATELET COUNT 171 10^3/uL (134-434); RBC 3.01 M/mm3 (3.60-5.2); RDW 14.3 % (11.6-15.6); WHITE BLOOD COUNT 8.8 K/mm3 (4.0-10.0)
[2023-03-27 10:51] LABS: BLOOD UREA NITROGEN 66.4 mg/dL (7-18); CALCIUM 9.1 mg/dL (8.5-10.1)
[2023-03-27 10:53] LABS: ALBUMIN 2.5 g/dl (3.4-5.0)
[2023-03-27 10:55] LABS: CREATININE 4.3 mg/dL (0.55-1.3)
[2023-03-27 10:56] LABS: BILIRUBIN,TOTAL 0.3 mg/dL (0.2-1); TOT PROT 6.4 g/dl (6.4-8.2)
[2023-03-27] MEDS ORDERED: LOSARTAN POTASSIUM 25 MG TABLET PO ONE ×2 (11:15→14:45)
[2023-03-27] MEDS: ALBUMIN HUMAN 25% 12.5 GM/50 ML VIAL IV SCH ×2 (11:40→11:41)
[2023-03-27] MEDS: VITAMIN B COMP W-C 1 EA TABLET (NEPHRO-VITE) PO SCH (14:27)
[2023-03-27] MEDS: CARVEDILOL 6.25 MG TABLET (FP) PO SCH (14:27)
[2023-03-27] MEDS: SENNOSIDES 8.6MG TABLET (FP) PO SCH (14:27)
[2023-03-27] MEDS: POLYETHYLENE GLYCOL (HEALTHYLAX) 3350 17 GM PACKET PO SCH (14:28)
[2023-03-27] MEDS: levETIRAcetam 500 MG TABLET (FP) PO SCH (14:31)
[2023-03-27 14:53] VITALS: BP 156/60; PULSE 75; TEMP 97.6
[2023-03-27] MEDS: DOCUSATE SODIUM 100 MG CAPSULE (FP) PO SCH (15:24)
[2023-03-27] MEDS: COLLAGENASE CLOSTRIDIUM HIST. 30 GRAMS TUBE TP SCH (15:24)
[2023-03-27] MEDS ORDERED: EPOETIN ALFA-EPBX 4,000 UNIT/ML VIAL SQ ONE (16:06)
== END 2023-03-27 17:51 | disposition home or self-care (01) | DRG 720 ==
LOC: JER 01:57 → JERBED 06:06 → J5S 09:22 → J4W 18:39 → J6S 03-25 20:50
PROVIDERS: ADMIT Internal Medicine; ATTEND Internal Medicine
DX: A41.89 Other specified sepsis (principal); K82.8 Other specified diseases of gallbladder; I48.91 Unspecified atrial fibrillation; D64.9 Anemia, unspecified; I27.20 Pulmonary hypertension, unspecified; L89.154 Pressure ulcer of sacral region, stage 4; E43 Unspecified severe protein-calorie malnutrition; Z68.21 Body mass index [BMI] 21.0-21.9, adult; D72.829 Elevated white blood cell count, unspecified; J44.9 Chronic obstructive pulmonary disease, unspecified; I13.2 Hypertensive heart and chronic kidney disease with heart failure and with stage 5 chronic kidney disease, or end stage renal disease; D63.1 Anemia in chronic kidney disease; N18.6 End stage renal disease; I50.32 Chronic diastolic (congestive) heart failure; F39 Unspecified mood [affective] disorder; Z99.2 Dependence on renal dialysis; R11.2 Nausea with vomiting, unspecified; Z90.5 Acquired absence of kidney
CPT/HCPCS: 0241U-QW; 36415; 36600; 70450-TC; 71045-TC-FY; 74176-TC; 76705-TC; 80053; 81003; 82803; 83605; 83690; 83735; 83880; 84100; 84484; 85025; 86850; 86900; 86901; 87040; 87086; 93005; 93010; 94660; 99285-25; J1644; Q5106